=== PATIENT | male | born 1945 | race Caucasian/White ===

== ENCOUNTER 2017-04-27 21:07 | Emergency (ER) | payer OTHER ==
[~2017-04-27] VITALS: Ht 180.3 cm; Wt 127.0 kg
[~2017-04-27 21:07] MED LIST: AMLODIPINE BESYL5 MG PO; AUGMENTIN 875 M1 TAB PO; BACTROBAN OINT22 GM PO; CEFTRIAXON2 GM/50 ML IV; CEPHALEXIN500 M1 PO; CINNAMON500 MG PO; CYCLOBENZAPRINE10 MG PO; D-1000 185 MG-11 TAB PO; FLEXERIL10 MG PO; FLONASE0.05 MG/AC NS; GABAPENTIN800 MG PO; GLUCOSAMINE & C1 TAB PO; GLUCOSE1 EACH PO; HUMULIN N100 U/ML SC; HUMULIN N100 UNIT/1 SQ; HUMULIN R100 U/ML; HUMULIN R100 U/ML SC; HYDROCODONE BIT1 T11 PO; INSULIN HUMA100 U/ML; LAMISIL250 MG PO; LISINOPRIL20 MG PO; LOPRESSOR100 MG; METFORMIN1000 MG PO; METFORMIN500 MG PO; NAPROSYN500 MG PO; NEURONTIN800 MG PO; NOVOLOG 70/30 M10 ML; NOVOLOG 70/30 M10 ML SC; NOVOLOG 701 UNIT/0.0; NOVOLOG10 ML SC; PERCOCET 325 MG1 TA2 PO; TAMIFLU 75MG CA75 MG PO; TOPROL XL100 MG PO; ULTRAM50 MG PO; VICODIN 5/500 505 MG PO; VITAMIN B121000 MC1 PO; [UNRECOGNIZED DRUG - CODE] IM
[2017-04-27 21:49] LABS: BASO # 0.1 10*3/uL (0.0-0.1); BASO % 0.3 % (0.0-1.0); EOS # 0.3 10*3/uL (0.0-0.4); EOS % 2.1 % (1.0-4.0); HEMATOCRIT 40.7 % (42.0-52.0); HEMOGLOBIN 13.5 g/dl (14.0-18.0); LYMPH # 1.5 10*3/uL (1.3-4.4); LYMPH % 10.5 % (27.0-41.0); MEAN CELL VOLUME 80.8 fl (80.0-94.0); MEAN CORPUSCULAR HGB 26.8 pg (27.0-31.0); MEAN CORPUSCULAR HGB CONC 33.2 g/dl (33.0-37.0); MEAN PLATELET VOLUME 9.1 fl (9.6-12.3); MONO % 6.6 % (3.0-9.0); NEUT # 11.7 10*3/uL (2.3-7.9); NEUT % 79.6 % (47.0-73.0); PLATELET COUNT AUTOMATED 281 10*3/uL (130-400); RED BLOOD COUNT 5.04 10*6/uL (4.50-5.90); WHITE BLOOD COUNT 14.6 10*3/uL (4.8-10.8)
[2017-04-27 22:03] LABS: ALBUMIN 3.3 gm/dl (3.1-4.5); ALKALINE PHOSPHATASE 55 U/L (45-117); BUN 18 mg/dl (7-24); CHLORIDE 106 mmol/L (98-107); CREATININE 1.22 mg/dL (0.70-1.30); POTASSIUM 4.3 mmol/L (3.5-5.1); SGOT/AST 21 IU/L (3-35); SGPT/ALT 24 U/L (12-78); SODIUM 139 mmol/L (136-145); TOTAL PROTEIN 7.7 gm/dL (6.4-8.2)
== END 2017-04-28 00:18 | disposition home or self-care (01) ==
LOC: ED 21:07
PROVIDERS: Student in an Organized Health Care Education/Training Program
DX: E16.2 Hypoglycemia, unspecified (principal); I10 Essential (primary) hypertension; E11.40 Type 2 diabetes mellitus with diabetic neuropathy, unspecified; M19.90 Unspecified osteoarthritis, unspecified site; M86.9 Osteomyelitis, unspecified; Z88.6 Allergy status to analgesic agent; Z79.899 Other long term (current) drug therapy

== ENCOUNTER 2017-07-22 15:17 | Inpatient (IN) | payer OTHER ==
[~2017-07-22] VITALS: Ht 180.3 cm; Wt 125.4 kg
--- NOTE | ~2017-07-22 | PR ---
[place], [place] PROGRESS NOTE NAME: LIZETT MOSQUEDA SR UNIT #: [id number] ROOM: 530 DOCTOR: TAM ROBBINS DPM BIRTHDATE: [birth year] DOS: 07/25/2017 SUBJECTIVE: The patient is seen one day status post I and D of abscess and bone biopsy, left foot. States he is feeling better. He denies fever, chills, nausea, vomiting or night sweats. OBJECTIVE: Neurovascular status is unchanged. Plantar first metatarsal head is clean and granular. No purulent drainage or malodor. There is still some mild edema and erythema about the first metatarsal, but no expressible drainage, no signs of remaining abscess at this time. ASSESSMENT: Status post incision and drainage of abscess, bone biopsy, plantar left first metatarsophalangeal joint. PLAN: Wound was evaluated. We would recommend, reapplying the wound VAC at this point per protocol and continue with wound VAC treatment for now. We will await results of the biopsy and cultures. Follow up tomorrow with Dr. Michel. TAM ROBBINS DPM CM:JOSIE [id number] TAM ROBBINS DPM 07/25/17 173 interface
--- NOTE | ~2017-07-22 | PR ---
[place], [place] PROGRESS NOTE NAME: LIZETT MOSQUEDA SR UNIT #: [id number] ROOM: 530 DOCTOR: JESSICA SPICER DPM BIRTHDATE: [birth year] DOS: 07/29/2017 SUBJECTIVE: The patient was seen for followup post I and D, left foot. OBJECTIVE: The wound VAC is intact. There is decreased localized erythema. Results of the bone biopsies are consistent with osteomyelitis. The patient's WBC was 12.2 today. ASSESSMENT: Osteomyelitis, left first MPJ. PLAN: Evaluation and management discussed with the patient that I think he should agree to having the PICC line placed with IV antibiotic treatment for 6 weeks through Infectious Disease. Discussed with the patient that he is risking amputation of the foot or the leg by not following the recommendations. The patient was agreeable to this and we can proceed with PICC line placement. Continue IV antibiotic treatment per Infectious Disease. We will continue wound VAC therapy in-house and once the patient is discharged on an outpatient basis. JESSICA SPICER DPM CM:PNTRANS [id number] JESSICA SPICER DPM 07/29/17 1328 interface
--- NOTE | ~2017-07-22 | PR ---
[place], [place] PROGRESS NOTE NAME: LIZETT MOSQUEDA SR UNIT #: [id number] ROOM: 530 DOCTOR: TAM ROBBINS DPM BIRTHDATE: [birth year] DOS: 07/28/2017 SUBJECTIVE: This patient is seen status post I and D of abscess, bone biopsy, left foot. He is 4 days postop. States he feels well. Denies fever, chills, nausea, vomiting or night sweats. OBJECTIVE: Wound VAC is removed from the left foot. Neurovascular status is unchanged. The left foot wound is clean and granular with no active signs of infection. There is minimal edema and erythema, but no purulent drainage or malodor. Wound does clean and granular and appears to be healing well at this time. No signs of any remaining abscess. ASSESSMENT: Status post incision and drainage of abscess, left foot with bone biopsy, doing well. PLAN: We will change the wound VAC today. I discussed with the patient that I would strongly consider a PICC line if Infectious Disease wants to put one in. This would minimize the risk of complications including further infection, need for further surgery, amputation or sepsis. He states he will think about it, but he at this point, he is not sure he wants the PICC line. Again, I could not stress enough for him to follow the orders of Infectious Disease and if they want a PICC line, I would strongly recommend it. We will continue to follow while in the hospital and follow him up as an outpatient. TAM ROBBINS DPM CM:PNTRANS [id number] TAM ROBBINS DPM 07/28/17 1225 interface
--- NOTE | ~2017-07-22 | O ---
[place], [place] OPERATIVE NOTE NAME: LIZETT MOSQUEDA SR UNIT #: [id number] ROOM: [facility] DOCTOR: JESSICA SPICER DPM BIRTHDATE: [birth year] DOS: 07/24/2017 INTERIM NOTE: The patient was seen for additional incision and drainage of left foot. MRI revealed abscess noted with possible early osteomyelitis of the medial sesamoid. Subsequently, the patient was setup for incision and drainage of the left foot with bone biopsy to rule out definitive diagnosis of osteomyelitis of the left foot. The patient was informed of potential risks and complications including over correction, under correction, potential need for further surgical intervention, amputation, continued IV antibiotic usage, etc. PREOPERATIVE DIAGNOSES: Abscess, first left metatarsophalangeal joint of the left foot with possible osteomyelitis. POSTOPERATIVE DIAGNOSES: Abscess, first left metatarsophalangeal joint of the left foot with possible osteomyelitis, pending pathology. PROCEDURE: Incision and drainage of left foot with bone biopsy of the medial sesamoid of left foot. ESTIMATED BLOOD LOSS: 10 mL. ANESTHESIA: LMAC. PACKING: A 0.5 inch plain packing. INSURANCE RISK ANALYST: None. SURGEON: Jessica Spicer DPM PROCEDURE DETAILS: The patient was brought to the operating room, placed on the operating table in supine position. Anesthesia was administered per Anesthesia Department. Local infiltration of 16 mL of 0.5% Marcaine plain was utilized for local block. The left foot was prepped and draped in usual aseptic manner. There was an abscess noted to plantar first left MPJ. A 15 blade was utilized to perform a 3 cm linear longitudinal incision. Purulent bloody drainage was noted with probing down to the plantar first left MPJ. A [place] elevator was utilized to track the abscess proximally additional 2 cm and distally additional 1 cm. These areas were opened with a 15 blade. Necrotic nonviable tissue was removed. The tissue culture was performed at this time for aerobic, anaerobic, acid fast and fungal cultures. Next, attention was directed to medial sesamoid where a Jamshidi needle was utilized to perform a biopsy of the medial sesamoid. Bone was sent to pathology to rule out osteomyelitis and also for separate cultures. The site was copiously flushed with pulse power irrigation with saline. The area was then packed with 0.5 inch plain packing, wet to dry dressing consisting of 4 x 4s, ABD, Kerlix and Jan bandage. Capillary refill time was normal to all digits of the left foot. The patient tolerated the procedure and anesthesia well and left the OR with vital signs stable and neurovascular status intact. The patient will be returned to the nursing unit. Resume previous orders. Elevate left foot and reinforce dressing as needed. Consult for Infectious Disease was ordered along with consult with Dr. 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 No other occluded arteries. Discussed this with the patient and his preoperatively that he may also need vascular intervention to help the site heal postoperatively. The patient will be seen tomorrow for postoperative followup with Dr. Luis and will return to the nursing unit after clearance by Anesthesia. JESSICA SPICER DPM CM:OPRECORD:OPERATIVE NOTE [phone] JESSICA SPICER DPM 07/30/17 0810 interface
--- NOTE | ~2017-07-22 | PR ---
[place], [place] PROGRESS NOTE NAME: LIZETT MOSQUEDA SR UNIT #: [id number] ROOM: 530 DOCTOR: JESSICA SPICER DPM BIRTHDATE: [birth year] DOS: 07/26/2017 SUBJECTIVE: The patient presents status postop I and D of abscess, bone biopsy day 2. The patient is feeling no pain. Denies fever, chills, nausea or vomiting. OBJECTIVE: The wound VAC is intact. There is decreased localized erythema, decreased edema. Cultures revealed light gram-positive cocci. ASSESSMENT: Post incision and drainage of abscess, possible osteomyelitis. PLAN: Evaluation and management. Continue wound VAC. Continue antibiotics per Infectious Disease. Awaiting for bone biopsy with final culture report from surgery 2 days ago. We will reevaluate the patient tomorrow or Friday. Discussed with Dr. Cortez the patient's case and he will try and help improve the localized circulation to allow for wound healing as the patient will need continued wound VAC therapy once he is on an outpatient basis along with potential delayed primary closure. JESSICA SPICER DPM CM:PNSHANE [phone] JESSICA SPICER DPM 07/26/17 1047 interface
--- NOTE | ~2017-07-22 | CON ---
[place], [place] REPORT OF CONSULTATION NAME: LIZETT MOSQUEDA SR UNIT #: [id number] ROOM: 530 DOCTOR: BETHANY MAHONEY DPM BIRTHDATE: [birth year] DOS: HISTORY OF PRESENT ILLNESS: The patient came into the Emergency Room last night. The Emergency Room contacted me about the patient's abscess of his left sub first metatarsal. He related a history where he had been treated by somebody at the [facility] and subsequently over the last several weeks he developed a callus on his foot. His foot has become more red, hot, swollen and painful, very tender to touch and he was admitted to the ER last night for abscess on his left first metatarsal. The ER contacted me last night and I had ordered vascular studies and MRI which have not been done to this point today. The patient is a 71-year-old male who again has this red hot swollen painful foot for last 3 weeks. It got increasingly worse to the point where it is extremely sore and tender to touch. He denies any chills, fever, nausea, vomiting, constipation, urinary complaints or other symptoms. The patient has had pretty similar infection on his right foot earlier this year, he found to have infection in his bone and he had to get on the antibiotics for 6 weeks at that time. He is a long standing diabetic, I believe since early . He says it takes longer for him to heal. Currently, the patient is on vancomycin, oxycodone. On the radiographs, there are no acute bony deformities identified. There is soft tissue swelling on the plantar aspect, surface aspect of the first metatarsal head, but no radiopaque foreign bodies that were identified based on the read of the radiologist. PAST MEDICAL HISTORY: Consists of chronic kidney disease, cranial nerve #6 palsy, diabetes mellitus, diabetic neuropathy, hypertension, moderate protein calorie malnutrition, morbid obesity, onychomycosis, osteoarthritis, vitamin B12 deficiency, vitamin D deficiency. PAST SURGICAL HISTORY: Consists of tonsillectomy and adenoid, cholecystectomy and hernia repair. SOCIAL HISTORY: The patient does not drink alcohol, does not use illicit drugs and does not use tobacco. FAMILY HISTORY: Father had bone cancer, at age 45 and his mother had COPD, between age 50 and 60. His sister had myocardial infarction and hypertension. ALLERGIES: VICODIN. HOME MEDICATIONS: Amlodipine, vitamin D, cyanocobalamin, cyclobenzaprine, dextrose, gabapentin, glucosamine sulfate, chondroitin sulfate, insulin, lisinopril, metoprolol, terbinafine. PHYSICAL EXAMINATION: LOWER EXTREMITIES: He has pedal pulses at the DP, PT of the left foot. He does have good cap refill time. It appears that he has appreciable good blood supply; however, we do need a noninvasive vascular exam to confirm perfusion to his left lower extremity. NEUROLOGICAL: He has a loss of protective sensation secondary to diabetic [place], [place] REPORT OF CONSULTATION NAME: LIZETT MOSQUEDA SR UNIT #: [id number] ROOM: [facility] DOCTOR: BETHANY MAHONEY DPM BIRTHDATE: [birth year] peripheral neuropathy. DERMATOLOGIC: He has well contained abscess ____ in his left foot, approximately 2 cm in diameter, once this was incised he had a tracking down to the metatarsophalangeal joint approximately 5 mm in diameter. There was creamy purulent drainage upon incision and drainage, consistent with staphylococcus aureus infection on his left. His foot is red, hot, swollen, tender and guarding of his left foot. MUSCULOSKELETAL: He has gastrocnemius equinus. He has limitation of range of motion of his forefoot on left, particularly to first metatarsophalangeal joint secondary to the guarding and red, erythematous, edematous area. ORTHOPEDIC: Possible osteomyelitis as it does probe into the bone and/or septic joint or early stages. I do believe it is early in the process based upon the way this looks. The tissues are relatively pink and healthy in this area, so I do think this is a clot at a reasonable time relative to his foot. IMPRESSION: Abscess to the joint of the first metatarsophalangeal joint, infection, possible osteomyelitis, possible old septic joint. PLAN: 1. Evaluation and management. 2. Bedside I and D was done due to the patient's neuropathy. No need for anesthesia ____ Betadine prep, sterile instrumentation. The incision and drainage was performed on the left foot. Cultures were sent for gram stain, aerobic, anaerobic, fungal and acid fast of his left foot. This culture was taken from the deep area of the joint as well as the subcutaneous tissue. Betadine ____ dry dressing. I ordered a wound VAC in 125 mm of pressure on continuous setting. Awaiting on the arterial vascular supply studies as well as the MRI. I did speak with my partner. Based on the MRI, we may take him into surgery for incision and drainage or based on the MRI results may just see how he does with bedside I and D, the wound VAC and dressings. When I left the room, the patient was comfortable. He was getting Toradol for his pain medication from the nursing staff. This surgical procedure was done at bedside due to the patient being complete neuropathic and with a Betadine prep on it. BETHANY MAHONEY DPM CM:CONSTR:REPORT OF CONSULTATION 1327 07/24/17 0235 interface
[2017-07-22 15:25] VITALS: BP 108/51
[2017-07-22 16:08] LABS: BASO # 0.1 10*3/uL (0.0-0.1); BASO % 0.5 % (0.0-1.0); EOS # 0.2 10*3/uL (0.0-0.4); HEMATOCRIT 42.7 % (42.0-52.0); HEMOGLOBIN 14.5 g/dl (14.0-18.0); LYMPH # 2.3 10*3/uL (1.3-4.4); LYMPH % 14.4 % (27.0-41.0); MEAN CELL VOLUME 80.3 fl (80.0-94.0); MEAN CORPUSCULAR HGB 27.3 pg (27.0-31.0); MEAN PLATELET VOLUME 9.8 fl (9.6-12.3); MONO # 1.1 10*3/uL (0.1-1.0); MONO % 7.3 % (3.0-9.0); NEUT % 76.4 % (47.0-73.0); PLATELET COUNT AUTOMATED 251 10*3/uL (130-400); RED BLOOD COUNT 5.32 10*6/uL (4.50-5.90); RED CELL DISTRI WIDTH 14.5 % (0-14.5); WHITE BLOOD COUNT 15.7 10*3/uL (4.8-10.8)
[2017-07-22 16:32] LABS: ALBUMIN 3.3 gm/dl (3.1-4.5); ALKALINE PHOSPHATASE 64 U/L (45-117); BUN 27 mg/dl (7-24); CHLORIDE 102 mmol/L (98-107); CREATININE 1.31 mg/dL (0.70-1.30); POTASSIUM 4.6 mmol/L (3.5-5.1); SGOT/AST 13 IU/L (3-35); SGPT/ALT 22 U/L (12-78); SODIUM 134 mmol/L (136-145); TOTAL PROTEIN 7.8 gm/dL (6.4-8.2)
[2017-07-22 16:39] LABS: TROPONIN I < 0.015 ng/ml (<0.045)
[2017-07-22 17:43] VITALS: BP 131/77
--- NOTE | 2017-07-22 17:54 | NUR ---
THE PATIENT WAS GIVEN HIS MEAL
--- NOTE | 2017-07-22 18:24 | NUR ---
IN ADDITION TO THE WOUND ON THE HEEL, THE PT HAS SCABBED AREAS TO THE LEFT KNEE AND LEFT FOREARM.
--- NOTE | 2017-07-22 19:15 | NUR ---
REPORT CALLED TO LIS
--- NOTE | 2017-07-22 19:38 | NUR ---
UPON TAKING THE PATIENT UPSTAIRS I NOTED A TAM ON HIS ABDOMEN. NO DRAINAGE NOTED. SCABBED OVER. I DID TELL THE RECIEVING NURSE LIS. ABOUT THE SITE
[2017-07-22 20:00] VITALS: BP 141/79
--- NOTE | 2017-07-22 20:20 | NUR ---
Time: 1929 A 71 year old MALE admitted to 5E under services of MYRA NICK DO. Pt. arrived via bed from ER. Chief complaint: CELLULITIS AND ABCESS OF LEFT FOOT. LIS SILVA
--- NOTE | 2017-07-22 20:23 | NUR ---
PATIENT AWAKE AND ALERT. WITH PATIENT, AMBULATORY. LEFT FOOT WARM, RED WITH THICKENED AREA UNDER LEFT GREAT TOE. PATIENT COMPLAINS OF PAIN FROM TIP OF TOES TO APPROX. 3 INCHES BELOW THE LEFT KNEE. LUNGS CLEAR.
--- NOTE | 2017-07-22 21:00 | NUR ---
DR HINSON WAS NOTIFIED OF CONSULT FOR ABCESS OF LEFT FOOT. NEW ORDER RECEIVED FOR CTA OF LEFT LOWER EXTREMITY.
[2017-07-23] VITALS: BP 150/70
--- NOTE | 2017-07-23 04:25 | NUR ---
24 HR chart check completed.
[2017-07-23 06:48] LABS: BASO # 0.1 10*3/uL (0.0-0.1); BASO % 0.4 % (0.0-1.0); EOS # 0.4 10*3/uL (0.0-0.4); EOS % 3.5 % (1.0-4.0); HEMATOCRIT 38.2 % (42.0-52.0); HEMOGLOBIN 12.8 g/dl (14.0-18.0); LYMPH # 2.5 10*3/uL (1.3-4.4); LYMPH % 21.1 % (27.0-41.0); MEAN CELL VOLUME 79.7 fl (80.0-94.0); MEAN CORPUSCULAR HGB 26.7 pg (27.0-31.0); MEAN CORPUSCULAR HGB CONC 33.5 g/dl (33.0-37.0); MEAN PLATELET VOLUME 10.3 fl (9.6-12.3); MONO # 1.1 10*3/uL (0.1-1.0); NEUT # 7.9 10*3/uL (2.3-7.9); NEUT % 65.6 % (47.0-73.0); PLATELET COUNT AUTOMATED 223 10*3/uL (130-400); RED BLOOD COUNT 4.79 10*6/uL (4.50-5.90); RED CELL DISTRI WIDTH 14.3 % (0-14.5)
[2017-07-23 07:29] LABS: ACT PARTIAL THROMBO TIME 31.7 SECONDS (20.8-31.5)
[2017-07-23 07:32] LABS: CHLORIDE 107 mmol/L (98-107); SODIUM 137 mmol/L (136-145)
[2017-07-23 07:44] LABS: ALBUMIN 2.7 gm/dl (3.1-4.5); ALKALINE PHOSPHATASE 52 U/L (45-117); BUN 19 mg/dl (7-24); CREATININE 0.97 mg/dL (0.70-1.30); PHOSPHOROUS 2.2 mg/dL (2.5-4.9); SGOT/AST 10 IU/L (3-35); SGPT/ALT 17 U/L (12-78); TOTAL PROTEIN 6.5 gm/dL (6.4-8.2)
[2017-07-23 08:00] VITALS: BP 149/94
--- NOTE | 2017-07-23 08:30 | NUR ---
Hand Striper in to talk to patient. Patient states lives at home with his . There are basement steps in the home. Physician: Dr. Tyler Winslow [facility]acy: [facility], maintenance meds through the [facility] Home health services: none Patient's level of ADLs: MINIMAL ASSIST Patient has working utilities: yes DME: cane Follow-up physician's appointment after d/c: will be made by hospitalist nurse director upon discharge Does patient want to access PORTAL?: no Discharge plan discussed with patient. He lives at home with his . There are basement steps in the home which he doesn't go down. He ambulates with a cane and is independent in his ADLs. When medically stable he will be discharged to home. ALEXANDER LAMAS
[2017-07-23 09:02] VITALS: BP 148/78
--- NOTE | 2017-07-23 11:02 | NUR ---
LIZETT MOSQUEDA SR [id number] Please refer to the physician's history and physical for past medical history, comorbid conditions, and allergies. Diagnosis: CELLULITIS AND ABSCESS OF FOOT Omar Score: , WOUND DESCRIPTIONS: Location of the wound: left metatarsal head Type of wound: abscess Thickness: Full Size: 4.2cm x 3cm x <0.1cm Tunneling: none Undermining: none Sinus Tract: none Presence of Exudate:none Amount: None Color: Brown, red, yellow Odor: None Periwound Skin Appearance: Erythema Wound edges: closed Pain (associated with wound): patient states tender to touch How does patient state this happened? patient states this started about 3 weeks ago but the reddness started Friday of this week. Patient states he follows up with podiatry at the [facility] but could not recall when he went last. Capillary refill <3 seconds. Pulse present. Surface the patient is resting on: Position Pro SKIN PREVENTION RECOMMENDATION: 1. Pressure redistribution support surface as appropriate 2. Elevate heels 3. Remove boots/TEDS every shift and reapply 4. Head of bed 30 degrees as tolerated 5. Assess nutrition and hydration 6. Manage moisture 7. Avoid the use of containment devices while in bed 8. Use absorptive products on surfaces limit layers of linens on bed 9. Turn and reposition every 1-2 hours in bed and every 1 hour in chair as tolerated 10. Weight shifts every 15 minutes while up in chair 11. Offloading with pillows or device to keep heels elevated off bed 12. Monitor skin at least every shift 13. Inspect under medical devices twice a day WOUND TREATMENT RECOMMENDATIONS: Await orders from Podiatry
--- NOTE | 2017-07-23 11:36 | NUR ---
PT OFF FLOOR FOR MRI/CTA.
--- NOTE | 2017-07-23 12:19 | NUR ---
PT RETURNED TO FLOOR FROM MRI/CTA.
--- NOTE | 2017-07-23 13:01 | NUR ---
IN TO SEE PT AT THIS TIME. DOCTOR PERFORMED DEBRIDEMENT AT BEDSIDE AND TOOK CULTURES OF ABSCESS. CULTURES WERE SENT TO LAB PER PROTOCOL. GAVE ORDERS TO THIS NURSE IMMEDIATELY FOLLOWING DEBRIDEMENT FOR WOUND VAC. PT TOLERATED DEBRIDEMENT WELL. WILL CONTINUE TO MONITOR.
--- NOTE | 2017-07-23 13:06 | NUR ---
PT REQUESTED MEDICATION FOR PAIN. PAIN RATED AT 8 OUT OF 10 AND LOCATED AT THE LEFT FOOT ABSCESS. PRN TORADOL GIVEN. WILL MONITOR FOR EFFECTIVENESS.
--- NOTE | 2017-07-23 13:36 | NUR ---
PT OFF FLOOR FOR MRI/UA/CTA.
--- NOTE | 2017-07-23 13:49 | NUR ---
PER PT, PRN TORADOL WAS EFFECTIVE FOR PAIN. PAIN RATED AT 3 OUT OF 10. WILL CONTINUE TO MONITOR.
--- NOTE | 2017-07-23 15:43 | NUR ---
PT RETURNED TO ROOM/FLOOR FROM MRI/CTA/US.
[2017-07-23 16:00] VITALS: BP 157/80
--- NOTE | 2017-07-23 18:00 | NUR ---
DEBRIDED ABSCESS WAS CLEANED WITH NORMAL SALINE AND DRIED WITH GAUZE. WOUND VAC WAS PLACED PER ORDERS. PT TOLERATED WELL. WILL CONTINUE TO MONITOR.
[2017-07-23 20:00] VITALS: BP 155/79
--- NOTE | 2017-07-23 20:00 | NUR ---
LAB RESULTS AND ORDERS REVIEWED. PT RESTING IN BED WITH SPOUSE AT BEDSIDE. NO ACUTE DISTRESS NOTED AT THIS TIME. RESPS EASY AND REGULAR. PLAN OF CARE REVIEWED. NO QUESTIONS VOICED AT THIS TIME.
[2017-07-23 22:05] VITALS: BP 181/80
[2017-07-24] VITALS (7 sets, daily range): BP systolic 84–176; BP diastolic 48–90
--- NOTE | 2017-07-24 03:00 | NUR ---
PT RESTING IN BED WITH EYES CLOSED. NO S AND S OF ACUTE DISTRESS NOTED AT THIS TIME. RESPS EASY AND REGULAR. CALL LIGHT IN REACH.
[2017-07-24 06:46] LABS: BASO # 0.1 10*3/uL (0.0-0.1); BASO % 0.5 % (0.0-1.0); EOS # 0.4 10*3/uL (0.0-0.4); EOS % 3.9 % (1.0-4.0); HEMATOCRIT 36.6 % (42.0-52.0); HEMOGLOBIN 12.5 g/dl (14.0-18.0); LYMPH # 2.2 10*3/uL (1.3-4.4); LYMPH % 19.7 % (27.0-41.0); MEAN CELL VOLUME 79.7 fl (80.0-94.0); MEAN CORPUSCULAR HGB 27.2 pg (27.0-31.0); MEAN CORPUSCULAR HGB CONC 34.2 g/dl (33.0-37.0); MEAN PLATELET VOLUME 9.8 fl (9.6-12.3); MONO # 1.1 10*3/uL (0.1-1.0); MONO % 9.6 % (3.0-9.0); NEUT # 7.2 10*3/uL (2.3-7.9); NEUT % 65.8 % (47.0-73.0); PLATELET COUNT AUTOMATED 234 10*3/uL (130-400); RED BLOOD COUNT 4.59 10*6/uL (4.50-5.90); RED CELL DISTRI WIDTH 14.1 % (0-14.5); WHITE BLOOD COUNT 10.9 10*3/uL (4.8-10.8)
[2017-07-24 07:20] LABS: BUN 11 mg/dl (7-24); CHLORIDE 106 mmol/L (98-107); SODIUM 138 mmol/L (136-145)
[2017-07-24 07:22] LABS: CREATININE 0.95 mg/dL (0.70-1.30); PHOSPHOROUS 2.5 mg/dL (2.5-4.9)
--- NOTE | 2017-07-24 11:46 | NUR ---
PT OFF FLOOR FOR SURGERY. WOUND VAC REMOVED. PT TOLERATED WELL. WET TO DRY DRESSING PLACED AND WRAPPED WITH KERLEX PER ORDERS.
--- NOTE | 2017-07-24 13:04 | NUR ---
PT RETURNED TO FLOOR/ROOM FROM SURGERY.
--- NOTE | 2017-07-24 13:15 | NUR ---
DR. Osuna IN TOO SEE PT FOR 'S SERVICE.
[2017-07-24] MEDS ORDERED: LISINOPRIL5 MG PO (14:14)
[2017-07-24] MEDS ORDERED: LANTUS SOL100 UNIT/1 SQ (14:19)
[2017-07-24] MEDS ORDERED: NOVOLOG FL100 UNIT/1 SQ (14:21)
--- NOTE | 2017-07-24 14:24 | NUR ---
PT IN BED, EYES CLOSED, RESTING. AT BEDSIDE. FLUIDS GOING. PT IN NO OBVIOUS DISTRESS AT THIS TIME. WILL CONTINUE TO MONITOR.
--- NOTE | 2017-07-24 15:09 | NUR ---
Meterman in to see patient. No new needs or request at this time. When medically stable he will be discharged home.
--- NOTE | 2017-07-24 19:16 | NUR ---
PTSW IV WAS LEAKING AFTER STARTNG VANCOMYCIN. DRESSING REMOVED AND IV CATHETER FOUND TO BE REMOVED FROM VEIN. PT UNSURE HOW IT HAPPENED. NEW IV STARTED AFTER 3 ATTEMPTS IN PTs LEFT FOREARM. NS AND VANC FLOWING. NO ISSUES PER PT.
--- NOTE | 2017-07-24 22:51 | NUR ---
PATIENT LYING IN BED, DRESSING INTACT ON LEFT FOOT. PATIENT DENIES PAIN IN LEFT LEG. PATIENT STATES HAS SLIGHT HEADACHE THAT IS SLOWLY DECREASING. IV INTACT TO LFA WITH FLUIDS RUNNING. LUNGS CLEAR AND PATIENT STATES THAT HE HAD BM X2 TODAY.
[2017-07-25] VITALS: BP 157/101
[2017-07-25 07:34] LABS: BASO # 0.1 10*3/uL (0.0-0.1); BASO % 0.6 % (0.0-1.0); EOS # 0.5 10*3/uL (0.0-0.4); EOS % 4.4 % (1.0-4.0); HEMATOCRIT 36.7 % (42.0-52.0); HEMOGLOBIN 12.3 g/dl (14.0-18.0); LYMPH # 2.3 10*3/uL (1.3-4.4); LYMPH % 21.4 % (27.0-41.0); MEAN CELL VOLUME 78.6 fl (80.0-94.0); MEAN CORPUSCULAR HGB 26.3 pg (27.0-31.0); MEAN CORPUSCULAR HGB CONC 33.5 g/dl (33.0-37.0); MEAN PLATELET VOLUME 10.2 fl (9.6-12.3); MONO # 1.1 10*3/uL (0.1-1.0); MONO % 9.8 % (3.0-9.0); NEUT # 6.9 10*3/uL (2.3-7.9); NEUT % 63.5 % (47.0-73.0); PLATELET COUNT AUTOMATED 249 10*3/uL (130-400); RED BLOOD COUNT 4.67 10*6/uL (4.50-5.90); RED CELL DISTRI WIDTH 13.9 % (0-14.5); WHITE BLOOD COUNT 10.9 10*3/uL (4.8-10.8)
[2017-07-25 07:52] LABS: BUN 12 mg/dl (7-24); CHLORIDE 105 mmol/L (98-107); CREATININE 0.93 mg/dL (0.70-1.30); PHOSPHOROUS 2.4 mg/dL (2.5-4.9); POTASSIUM 3.7 mmol/L (3.5-5.1); SODIUM 138 mmol/L (136-145)
[2017-07-25 08:00] VITALS: BP 155/91
[2017-07-25 12:00] VITALS: BP 142/65
--- NOTE | 2017-07-25 12:47 | NUR ---
Dean Of Boys in to see patient. No new needs or request at this time. When medically stable he will be discharged home.
[2017-07-25 16:00] VITALS: BP 160/73
--- NOTE | 2017-07-25 19:57 | NUR ---
ASSUMED CARE OF PT. PT ASSESSED AND PLAN OF CARE IMPLIMENTED
[2017-07-25 20:00] VITALS: BP 137/77
[2017-07-26] VITALS: BP 133/57
--- NOTE | 2017-07-26 02:00 | NUR ---
PT RESTING QUIETLY, RESPIRATIONS EASY. CALL LIGHT WITHIN REACH.
[2017-07-26 07:37] LABS: PHOSPHOROUS 3.7 mg/dL (2.5-4.9)
[2017-07-26 08:00] VITALS: BP 151/75
[2017-07-26 12:00] VITALS: BP 169/82
[2017-07-26 16:00] VITALS: BP 172/86
[2017-07-26 20:00] VITALS: BP 162/78
[2017-07-27] VITALS: BP 164/89
--- NOTE | 2017-07-27 06:29 | NUR ---
PER DR. LOPEZ SAFE TO GIVE LEVEMIR THIS MORNING.
--- NOTE | 2017-07-27 06:43 | NUR ---
0730 DOSE OF INSULIN WAS NOT GIVEN DUE TO CRITICAL GLUCOSE LEVELS WITH IN THE LAST 24 HOUR PERIOD.
[2017-07-27 07:25] LABS: BASO # 0.1 10*3/uL (0.0-0.1); BASO % 0.7 % (0.0-1.0); EOS # 0.7 10*3/uL (0.0-0.4); EOS % 7.1 % (1.0-4.0); HEMATOCRIT 36.7 % (42.0-52.0); HEMOGLOBIN 12.3 g/dl (14.0-18.0); LYMPH # 2.6 10*3/uL (1.3-4.4); LYMPH % 25.1 % (27.0-41.0); MEAN CELL VOLUME 79.3 fl (80.0-94.0); MEAN CORPUSCULAR HGB 26.6 pg (27.0-31.0); MEAN CORPUSCULAR HGB CONC 33.5 g/dl (33.0-37.0); MONO # 0.9 10*3/uL (0.1-1.0); MONO % 8.3 % (3.0-9.0); NEUT # 6.1 10*3/uL (2.3-7.9); NEUT % 58.4 % (47.0-73.0); PLATELET COUNT AUTOMATED 287 10*3/uL (130-400); RED BLOOD COUNT 4.63 10*6/uL (4.50-5.90); WHITE BLOOD COUNT 10.5 10*3/uL (4.8-10.8)
[2017-07-27 07:45] LABS: BUN 11 mg/dl (7-24); CHLORIDE 103 mmol/L (98-107); CREATININE 0.82 mg/dL (0.70-1.30); PHOSPHOROUS 2.9 mg/dL (2.5-4.9); POTASSIUM 3.5 mmol/L (3.5-5.1); SODIUM 138 mmol/L (136-145)
[2017-07-27 08:00] VITALS: BP 162/76
[2017-07-27 12:00] VITALS: BP 158/98
[2017-07-27 16:00] VITALS: BP 155/64
[2017-07-27 20:00] VITALS: BP 159/77
[2017-07-28] VITALS: BP 167/85
--- NOTE | 2017-07-28 05:15 | NUR ---
Shift chart check completed.
[2017-07-28 05:42] LABS: BUN 12 mg/dl (7-24); CHLORIDE 103 mmol/L (98-107); CREATININE 0.95 mg/dL (0.70-1.30); POTASSIUM 4.2 mmol/L (3.5-5.1); SODIUM 140 mmol/L (136-145)
[2017-07-28 07:24] LABS: BASO # 0.1 10*3/uL (0.0-0.1); BASO % 0.6 % (0.0-1.0); EOS # 0.7 10*3/uL (0.0-0.4); EOS % 6.9 % (1.0-4.0); HEMATOCRIT 36.7 % (42.0-52.0); HEMOGLOBIN 12.2 g/dl (14.0-18.0); LYMPH # 2.8 10*3/uL (1.3-4.4); LYMPH % 26.7 % (27.0-41.0); MEAN CELL VOLUME 78.6 fl (80.0-94.0); MEAN CORPUSCULAR HGB 26.1 pg (27.0-31.0); MEAN CORPUSCULAR HGB CONC 33.2 g/dl (33.0-37.0); MEAN PLATELET VOLUME 9.8 fl (9.6-12.3); MONO # 0.9 10*3/uL (0.1-1.0); MONO % 8.6 % (3.0-9.0); NEUT % 56.7 % (47.0-73.0); PLATELET COUNT AUTOMATED 296 10*3/uL (130-400); RED BLOOD COUNT 4.67 10*6/uL (4.50-5.90); RED CELL DISTRI WIDTH 13.8 % (0-14.5); WHITE BLOOD COUNT 10.6 10*3/uL (4.8-10.8)
[2017-07-28 08:00] VITALS: BP 154/83
--- NOTE | 2017-07-28 08:30 | NUR ---
Concrete Carpenter in to see patient. No new needs or request at this time. When medically stable he will be discharged home.
--- NOTE | 2017-07-28 12:14 | NUR ---
DR. ROBBINS HAS ROUNDED AND REMOVED WOUND VAC FROM L FOOT. NEW WOUND VAC TO BE PLACED.
--- NOTE | 2017-07-28 13:00 | NUR ---
patient has voiced to multiple doctors today that he does not want a picc line.
--- NOTE | 2017-07-28 14:30 | NUR ---
new wound vac dressing in place and photo taken.
--- NOTE | 2017-07-28 15:00 | NUR ---
Discussed short term SNF with patient and he adamantly refuses. He has had visiting nurses before but he doesn't remember what company it was with. He said he will talk to his when she comes in. Will continue to follow.
[2017-07-28] MEDS ORDERED: ZYVOX600 MG PO (15:33)
--- NOTE | 2017-07-28 15:48 | NUR ---
LIZETT MOSQUEDA SR [id number] Please refer to the physician's history and physical for past medical history, comorbid conditions, and allergies. Diagnosis: CELLULITIS AND ABSCESS OF FOOT Omar Score: 20,LOW OR NO RISK WOUND DESCRIPTIONS: Location of the wound: left plantar aspect of foot Type of wound: surgical Thickness: Full Size: 6.3cm x 0.9cm x 0.6cm Tunneling: none Undermining: none Sinus Tract: none Presence of Exudate: Serosanguineous Amount: Light Color: Red, yellow Odor: None Periwound Skin Appearance: Normal Wound edges: approximated Pain (associated with wound): none at time of assessment How does patient state this happened? he stated it started as an abscess and got worse [facility]. Wound vac dressing was changed today per Dr. Luis. 125mmHG continous. This nurse explained to his the importance of contining the antibiotic therapy via iv once patient is discharge. He stated he will speak to his to see if they will be able to do it at home since he doesn't want to go to a facility. I was in the room while was in the room and he explained the importance of his therapy after discharged here from the hospital as well. Surface the patient is resting on: Position Pro SKIN PREVENTION RECOMMENDATION: 1. Pressure redistribution support surface as appropriate 2. Elevate heels 3. Remove boots/TEDS every shift and reapply 4. Head of bed 30 degrees as tolerated 5. Assess nutrition and hydration 6. Manage moisture 7. Avoid the use of containment devices while in bed 8. Use absorptive products on surfaces limit layers of linens on bed 9. Turn and reposition every 1-2 hours in bed and every 1 hour in chair as tolerated 10. Weight shifts every 15 minutes while up in chair 11. Offloading with pillows or device to keep heels elevated off bed 12. Monitor skin at least every shift 13. Inspect under medical devices twice a day WOUND TREATMENT RECOMMENDATIONS: Continue dressings per podiatry.
[2017-07-28 16:00] VITALS: BP 158/87
[2017-07-28 20:00] VITALS: BP 143/75
--- NOTE | 2017-07-28 20:00 | NUR ---
SITTING AT BEDSIDE, NO DISTRESS NOTED. RESPIRATIONS EASY. LUNGS DIMINISHED, CLEAR. PULSE OX 95% RA. WOUND VAC IN PLACE TO LEFT FOOT, PEDAL EDEMA NOTED. CALL LIGHT WITHIN REACH. NO VOICED COMPLAINTS
--- NOTE | 2017-07-28 23:30 | NUR ---
SLEEPING, NO DISTRESS NOTED. RESPIRATIONS EASY. VSS. CALL LIGHT WITHIN REACH
[2017-07-29] VITALS: BP 134/72
--- NOTE | 2017-07-29 03:00 | NUR ---
CONTINUES TO SLEEP WITH NO DISTRESS NOTED. RESPIRATIONS EASY. CALL LIGHT WITHIN REACH
--- NOTE | 2017-07-29 06:30 | NUR ---
WHILE ADMINISTERING INSULIN TO PATIENT'S ABD, WOUND NOTED. WOUND NOTED TO OLD SURGICAL SCAR. PATIENT STATES WOUND OPENS EVERY YEAR AND WOUND HAS BEEN OPEN SINCE JANUARY
[2017-07-29 06:46] LABS: BASO # 0.1 10*3/uL (0.0-0.1); BASO % 0.6 % (0.0-1.0); EOS # 0.6 10*3/uL (0.0-0.4); HEMATOCRIT 36.8 % (42.0-52.0); HEMOGLOBIN 12.4 g/dl (14.0-18.0); LYMPH # 3.3 10*3/uL (1.3-4.4); LYMPH % 27.2 % (27.0-41.0); MEAN CELL VOLUME 78.3 fl (80.0-94.0); MEAN CORPUSCULAR HGB 26.4 pg (27.0-31.0); MEAN CORPUSCULAR HGB CONC 33.7 g/dl (33.0-37.0); MEAN PLATELET VOLUME 9.3 fl (9.6-12.3); MONO % 8.1 % (3.0-9.0); NEUT # 7.1 10*3/uL (2.3-7.9); NEUT % 58.4 % (47.0-73.0); PLATELET COUNT AUTOMATED 296 10*3/uL (130-400); RED CELL DISTRI WIDTH 13.6 % (0-14.5); WHITE BLOOD COUNT 12.2 10*3/uL (4.8-10.8)
[2017-07-29 06:59] LABS: BUN 12 mg/dl (7-24); CHLORIDE 103 mmol/L (98-107); CREATININE 0.87 mg/dL (0.70-1.30); PHOSPHOROUS 2.7 mg/dL (2.5-4.9); POTASSIUM 3.8 mmol/L (3.5-5.1); SODIUM 138 mmol/L (136-145)
--- NOTE | 2017-07-29 07:15 | NUR ---
VANC TROUGH 22.8. TROUGH DRAWN AFTER VANC HAD BEEN RUNNING FOR 20-25 MINS. LAB AND PHARMACY NOTIFIED. PHARMACY TO ORDER VANC REDRAW THIS PM
[2017-07-29 08:00] VITALS: BP 144/57
--- NOTE | 2017-07-29 08:30 | NUR ---
Egg Grader in to see patient. Discussed discharge needs and patient previously used [facility] for home health after surgery on his right foot. He would like to use [facility] this time for the wound vac. When medically stable he will be discharged to home.
--- NOTE | 2017-07-29 10:01 | NUR ---
MEDICATED WITH PRN PO MOTRIN FOR C/O HEADACHE.
--- NOTE | 2017-07-29 10:54 | NUR ---
LIZETT MOSQUEDA SR [id number] Please refer to the physician's history and physical for past medical history, comorbid conditions, and allergies. Diagnosis: CELLULITIS AND ABSCESS OF FOOT Omar Score: 20,LOW OR NO RISK WOUND DESCRIPTIONS: Location of the wound: MID ABDOMIN Thickness: Partial Size: 0.6CM X 0.6CM X 0.6CM Tunneling: NONE Undermining: NONE Sinus Tract: NONE Presence of Exudate: NONE Amount: None Color: Brown, RED Odor: None Periwound Skin Appearance: Scar Wound edges: APPROXIMATED Pain (associated with wound): DENIED AT TIME OF ASSESSMENT How does patient state this happened? PATIENT STATES HE HAD HIS GALLBLADDER REMOVED IN 1982 AND THE SCAR WILL OPEN FOR A COUPLE DAYS TO A COUPLE WEEKS THEN HEAL. PATIENT STATES THIS HAS BEEN HAPPENING "FOR YEARS" AND HAS TOLD HIS PCP EVERYTIME IT OPENS. Surface the patient is resting on: Position Pro SKIN PREVENTION RECOMMENDATION: 1. Pressure redistribution support surface as appropriate 2. Elevate heels 3. Remove boots/TEDS every shift and reapply 4. Head of bed 30 degrees as tolerated 5. Assess nutrition and hydration 6. Manage moisture 7. Avoid the use of containment devices while in bed 8. Use absorptive products on surfaces limit layers of linens on bed 9. Turn and reposition every 1-2 hours in bed and every 1 hour in chair as tolerated 10. Weight shifts every 15 minutes while up in chair 11. Offloading with pillows or device to keep heels elevated off bed 12. Monitor skin at least every shift 13. Inspect under medical devices twice a day WOUND TREATMENT RECOMMENDATIONS: CLEANSE ABD WOUND WITH NS APPLY SUREPREP TO SURROUNDING SKIN APPLY THERAHONEY AND COVER WITH OPTIFOAM GENTLE.
[2017-07-29 12:00] VITALS: BP 167/78
--- NOTE | 2017-07-29 12:15 | NUR ---
DR. SPICER WAS IN TO SEE PATIENT RE: PLAN OF CARE, PER DR. SPICER, PATIENT IS AGREEABLE TO PICC LINE PLACEMENT. PHONED DR. RIDER'S OFFICE TO SEND OUT PAGE RE: THIS INFORMATION.
--- NOTE | 2017-07-29 12:35 | NUR ---
DR. RIDER NOTIFIED THAT PATIENT IS AGREEABLE TO PICC LINE PLACEMENT, AND HE WOULD LIKE [facility] UPON DISCHARGE, PER CASE MANAGEMENT NOTES.
--- NOTE | 2017-07-29 12:37 | NUR ---
PRN PO MOTRIN EFFECTIVE FOR HEADACHE.
[2017-07-29 16:00] VITALS: BP 137/86; BP 160/90
[2017-07-29 20:00] VITALS: BP 153/74
--- NOTE | 2017-07-29 20:00 | NUR ---
PATIENT AWAKE IN BED. WOUND VAC INTACT TO LEFT FOOT. ASSESSMENT COMPLETE, LUNG SOUNDS CLEAR, ACTIVE BOWEL SOUNDS X4. PATIENT DENIES ANY NEEDS AT THIS TIME, WILL CONTINUE TO MONITOR.
[2017-07-30] VITALS: BP 149/86
[2017-07-30 06:31] LABS: BUN 14 mg/dl (7-24); CHLORIDE 102 mmol/L (98-107); CREATININE 0.96 mg/dL (0.70-1.30); POTASSIUM 3.9 mmol/L (3.5-5.1); SODIUM 139 mmol/L (136-145)
[2017-07-30 06:33] LABS: BASO # 0.1 10*3/uL (0.0-0.1); BASO % 0.5 % (0.0-1.0); EOS # 0.6 10*3/uL (0.0-0.4); HEMATOCRIT 36.9 % (42.0-52.0); HEMOGLOBIN 12.3 g/dl (14.0-18.0); LYMPH % 26.1 % (27.0-41.0); MEAN CELL VOLUME 79.2 fl (80.0-94.0); MEAN CORPUSCULAR HGB 26.4 pg (27.0-31.0); MEAN CORPUSCULAR HGB CONC 33.3 g/dl (33.0-37.0); MEAN PLATELET VOLUME 9.7 fl (9.6-12.3); MONO # 0.9 10*3/uL (0.1-1.0); MONO % 7.9 % (3.0-9.0); NEUT % 59.6 % (47.0-73.0); PLATELET COUNT AUTOMATED 306 10*3/uL (130-400); RED BLOOD COUNT 4.66 10*6/uL (4.50-5.90); RED CELL DISTRI WIDTH 13.8 % (0-14.5); WHITE BLOOD COUNT 11.7 10*3/uL (4.8-10.8)
[2017-07-30 07:49] VITALS: BP 132/70
--- NOTE | 2017-07-30 08:30 | NUR ---
Lecturer In Marketing in to see patient. No new needs or requests at this time. When medically stable he will be discharged to home with [facility].
--- NOTE | 2017-07-30 10:42 | NUR ---
Spoke to Bill at Dr. Michel's office regarding wound vac. Terence is speaking to [facility] at this time.
[2017-07-30 12:00] VITALS: BP 162/75
--- NOTE | 2017-07-30 15:44 | NUR ---
[facility] WOUND VAC FULL FASHIONED GARMENT KNITTER CALLED, STATES A WOUND VAC WILL BE DELIVERED TO PATIENT'S ROOM IN ABOUT AN HOUR. DR. SPICER'S OFFICE STAFF NOTIFIED OF THIS.
[2017-07-30 16:00] VITALS: BP 146/73
--- NOTE | 2017-07-30 17:19 | NUR ---
DR. SPICER NOTIFIED THAT [facility] WOUND [facility]AC HAS ARRIVED, HE IS CALLING DR. RIDER TO DISCUSS SELECTION OF ANTIBIOTICS/ROUTES OF ADMINISTRATION FOR DISCHARGE.
--- NOTE | 2017-07-30 17:34 | NUR ---
PER DR. SPICER, HE AND DR. RIDER ARE IN AGREEMENT WITH THE [facility], PRESCRIPTION IS ON THE CHART FOR DISCHARGE. PER DR. SPICER, WOUND VAC MAY BE APPLIED TONIGHT, OR TOMORROW, IF THERE ARE NO PLANS TO DISCHARGE THE PATIENT TONIGHT. DR. EDOUARD NOTIFIED OF THIS INFORMATION, PER DR. EDOUARD, PATIENT PROBABLY CAN BE DISCHARGED TONIGHT. PROCEEDING WITH WOUND PHOTOGRAPHY AND APPLICATION OF [facility] WOUND VAC AT THIS TIME.
[2017-07-30] MEDS ORDERED: ZYVOX600 MG PO (17:57)
[2017-07-30] MEDS ORDERED: LISINOPRIL20 MG PO (17:57)
--- NOTE | 2017-07-30 18:00 | NUR ---
[facility] WOUND VAC APPLIED TO LEFT GREAT TOE/FOOT WOUND. DISCHARGE ORDER ENTERED, PREPARING PATIENT FOR DISCHARGE HOME WITH [facility] FOR WOUND VAC MAINTENANCE.
--- NOTE | 2017-07-30 19:30 | NUR ---
ASSUMED CARE OF PATIENT. PATIENT RESTING IN BED WITH LEFT LEG ELEVATED AND WOUND VAC APPLIED. PATIENT DENIES ANY PAIN OR DISCOMFORT ON ASSESSMENT. PATIENT IS A&OX3. NO FURTHER REQUESTS AT THIS TIME, CALL LIGHT WITHIN REACH. SEE ASSESSMENT.
[2017-07-30 20:00] VITALS: BP 180/78
--- NOTE | 2017-07-30 20:45 | NUR ---
DR. SHAFER MADE AWARE THAT PATIENT WON'T HAVE A RIDE FOR DISCHARGE UNTIL THE MORNING AND THAT PATIENT NEEDS PRESRIPTIONS FILLED AT OUR PHARMACY TO ENSURE MEDICATION COMPLIANCE.
[2017-07-31] VITALS: BP 155/67
--- NOTE | 2017-07-31 06:35 | NUR ---
PATIENT RESTING IN BED AND VERBALIZES BEING ABLE TO SLEEP T/O NIGHT W/O INTERRUPTION. PATIENT HAS WOUND VAC APPLIED TO LEFT FOOT. PATIENT DENIES ANY PAIN OR DISCOMFORT UPON ASSESSMENT. NO FURTHER REQUEST AT THIS TIME. CALL LIGHT WITHIN REACH. SEE ASSESSMENT.
[2017-07-31 07:04] LABS: BASO # 0.1 10*3/uL (0.0-0.1); BASO % 0.6 % (0.0-1.0); EOS # 0.6 10*3/uL (0.0-0.4); EOS % 5.5 % (1.0-4.0); HEMATOCRIT 38.2 % (42.0-52.0); HEMOGLOBIN 12.8 g/dl (14.0-18.0); LYMPH # 3.3 10*3/uL (1.3-4.4); LYMPH % 29.2 % (27.0-41.0); MEAN CELL VOLUME 80.6 fl (80.0-94.0); MEAN CORPUSCULAR HGB CONC 33.5 g/dl (33.0-37.0); MEAN PLATELET VOLUME 9.9 fl (9.6-12.3); MONO # 0.8 10*3/uL (0.1-1.0); MONO % 7.5 % (3.0-9.0); NEUT # 6.3 10*3/uL (2.3-7.9); NEUT % 56.5 % (47.0-73.0); PLATELET COUNT AUTOMATED 333 10*3/uL (130-400); RED BLOOD COUNT 4.74 10*6/uL (4.50-5.90); RED CELL DISTRI WIDTH 13.8 % (0-14.5); WHITE BLOOD COUNT 11.2 10*3/uL (4.8-10.8)
[2017-07-31 07:33] LABS: BUN 16 mg/dl (7-24); CHLORIDE 103 mmol/L (98-107); CREATININE 0.94 mg/dL (0.70-1.30); PHOSPHOROUS 2.8 mg/dL (2.5-4.9); POTASSIUM 3.8 mmol/L (3.5-5.1); SODIUM 139 mmol/L (136-145)
[2017-07-31 08:00] VITALS: BP 139/80
--- NOTE | 2017-07-31 08:30 | NUR ---
Rn Visiting in to see patient. He asked where to get his antibiotic from. Instructed he would need to stop at the hospital pharmacy on the 3rd floor when he is discharged to pay for and bulk picker his medications. He verbalized an understanding. When medically stable he will be discharged to home with the wound vac and OV.
--- NOTE | 2017-07-31 09:53 | NUR ---
Discharge instructions reviewed with patient/family. Patient receptive and verbalizes understanding. Follow-up care arranged. Written instructions given to patient/. JORGE ALBERTO SCHULER
--- NOTE | 2017-07-31 10:05 | NUR ---
Pt discharged in care of with belongings and wound care supplies.
== END 2017-07-31 10:16 | disposition home health service (06) | DRG 853 ==
LOC: ED 15:17 → 5E 18:33 → EDHOLD 18:33 → 5E 18:55
PROVIDERS: Family Medicine; Internal Medicine; Internal Medicine Nephrology; Nurse Practitioner Family; ADMIT Internal Medicine
PROC: 0J9R0ZZ Drainage of Left Foot Subcutaneous Tissue and Fascia, Open Approach (ICD-10-PCS; principal; 2017-07-23)
PROC: 0QBP0ZX Excision of Left Metatarsal, Open Approach, Diagnostic (ICD-10-PCS; 2017-07-24)
PROC: 0JBR0ZZ Excision of Left Foot Subcutaneous Tissue and Fascia, Open Approach (ICD-10-PCS; 2017-07-24)
DX: A41.9 Sepsis, unspecified organism (principal); E43 Unspecified severe protein-calorie malnutrition; E11.22 Type 2 diabetes mellitus with diabetic chronic kidney disease; E11.40 Type 2 diabetes mellitus with diabetic neuropathy, unspecified; M86.172 Other acute osteomyelitis, left ankle and foot; L03.116 Cellulitis of left lower limb; E66.01 Morbid (severe) obesity due to excess calories; E87.1 Hypo-osmolality and hyponatremia; L97.421 Non-pressure chronic ulcer of left heel and midfoot limited to breakdown of skin; L02.612 Cutaneous abscess of left foot; I13.0 Hypertensive heart and chronic kidney disease with heart failure and stage 1 through stage 4 chronic kidney disease, or unspecified chronic kidney disease; B35.1 Tinea unguium; E11.621 Type 2 diabetes mellitus with foot ulcer; E11.65 Type 2 diabetes mellitus with hyperglycemia; M19.90 Unspecified osteoarthritis, unspecified site; E53.8 Deficiency of other specified B group vitamins; N18.3 Chronic kidney disease, stage 3 (moderate); E11.69 Type 2 diabetes mellitus with other specified complication; R26.2 Difficulty in walking, not elsewhere classified; E83.42 Hypomagnesemia; E83.39 Other disorders of phosphorus metabolism; I50.9 Heart failure, unspecified; I70.209 Unspecified atherosclerosis of native arteries of extremities, unspecified extremity; M60.9 Myositis, unspecified; Z53.29 Procedure and treatment not carried out because of patient's decision for other reasons; Z79.4 Long term (current) use of insulin; Z79.899 Other long term (current) drug therapy; Z88.5 Allergy status to narcotic agent; Z88.8 Allergy status to other drugs, medicaments and biological substances; Z90.49 Acquired absence of other specified parts of digestive tract; Z82.49 Family history of ischemic heart disease and other diseases of the circulatory system; Z80.0 Family history of malignant neoplasm of digestive organs; Z82.61 Family history of arthritis; Z83.6 Family history of other diseases of the respiratory system; Z80.3 Family history of malignant neoplasm of breast; Z68.38 Body mass index [BMI] 38.0-38.9, adult

== ENCOUNTER 2017-12-12 16:06 | Emergency (ER) | payer OTHER ==
[~2017-12-12] VITALS: Ht 180.3 cm; Wt 120.2 kg
[~2017-12-12 16:06] MED LIST changes: +LANTUS SOL100 UNIT/1 SQ; +LISINOPRIL5 MG PO; +NOVOLOG FL100 UNIT/1 SQ; +ZYVOX600 MG PO
[2017-12-12] MEDS ORDERED: DELTASONE20 M1 PO (18:31)
[2017-12-12] MEDS ORDERED: TRAMADOL HCL50 MG PO (18:32)
== END 2017-12-12 19:04 | disposition home or self-care (01) ==
LOC: ED 16:06
DX: M25.511 Pain in right shoulder (principal); G89.29 Other chronic pain; Z90.49 Acquired absence of other specified parts of digestive tract; Z98.890 Other specified postprocedural states; Z79.4 Long term (current) use of insulin; Z88.6 Allergy status to analgesic agent; Z88.5 Allergy status to narcotic agent; Z79.899 Other long term (current) drug therapy

== ENCOUNTER 2018-07-01 18:24 | Emergency (ER) | payer OTHER ==
[~2018-07-01] VITALS: Wt 129.3 kg
[~2018-07-01 18:24] MED LIST changes: +DELTASONE20 M1 PO; +TRAMADOL HCL50 MG PO
[2018-07-01 18:54] LABS: BASO # 0.1 10*3/uL (0.0-0.1); BASO % 0.6 % (0.0-1.0); EOS # 0.6 10*3/uL (0.0-0.4); EOS % 4.4 % (1.0-4.0); HEMATOCRIT 42.2 % (42.0-52.0); HEMOGLOBIN 13.8 g/dl (14.0-18.0); LYMPH # 2.9 10*3/uL (1.3-4.4); LYMPH % 22.3 % (27.0-41.0); MEAN CELL VOLUME 76.4 fl (80.0-94.0); MEAN CORPUSCULAR HGB CONC 32.7 g/dl (33.0-37.0); MEAN PLATELET VOLUME 9.7 fl (9.6-12.3); MONO # 1.1 10*3/uL (0.1-1.0); MONO % 8.1 % (3.0-9.0); NEUT # 8.4 10*3/uL (2.3-7.9); NEUT % 64.2 % (47.0-73.0); PLATELET COUNT AUTOMATED 309 10*3/uL (130-400); RED BLOOD COUNT 5.52 10*6/uL (4.50-5.90); RED CELL DISTRI WIDTH 15.3 % (0-14.5); WHITE BLOOD COUNT 13.1 10*3/uL (4.8-10.8)
[2018-07-01 19:12] LABS: ALBUMIN 3.2 gm/dl (3.1-4.5); CREATININE 1.48 mg/dL (0.70-1.30); POTASSIUM 4.4 mmol/L (3.5-5.1); TOTAL PROTEIN 7.5 gm/dL (6.4-8.2)
[2018-07-01] MEDS ORDERED: LANTUS SOL100 UNIT/1 SQ (19:16)
[2018-07-01] MEDS ORDERED: CLARITIN10 MG PO (19:19)
[2018-07-01] MEDS ORDERED: FLONASE ALLERG9.9 ML NAS (19:19)
[2018-07-01] MEDS ORDERED: TESSALON PERLE100 M1 PO (19:19)
== END 2018-07-01 19:25 | disposition home or self-care (01) ==
LOC: ED 18:24
PROVIDERS: Nurse Practitioner Family
DX: J06.9 Acute upper respiratory infection, unspecified (principal); I10 Essential (primary) hypertension; E11.621 Type 2 diabetes mellitus with foot ulcer; E11.40 Type 2 diabetes mellitus with diabetic neuropathy, unspecified; M19.90 Unspecified osteoarthritis, unspecified site; E66.1 Drug-induced obesity; Z88.6 Allergy status to analgesic agent; Z79.4 Long term (current) use of insulin

== ENCOUNTER 2019-01-19 14:14 | Inpatient (IN) | payer OTHER ==
[~2019-01-19] VITALS: Ht 180.3 cm; Wt 122.5 kg
--- NOTE | ~2019-01-19 | EKG ---
[place], [place] ELECTROCARDIOGRAM REPORT NAME: LIZETT MOSQUEDA SR UNIT #: [id number] ROOM: 422 DOCTOR: DAVID DRAFT REPORT BIRTHDATE: [birth year] [facility] Test Date: 2019-01-19 Test Time: 15:08:49 Pat Name: LIZETT MOSQUEDA Department: Room: 422 Gender: M Oyster Buyer: : 1945 Requested By: BAL TOPETE Order Number: [id number] Reading MD: Arturo Izaguirre MD Measurements Intervals [place] Rate: 57 P: 10 NJ: 190 QRS: -34 QRSD: 92 T: 24 QT: 399 QTc: 389 Interpretive Statements Sinus badycardia Abnormal R-wave progression, early transition Inferior infarct, old Lateral leads are also involved Electronically Signed On 01-20-2019 11:44:02 PDT by Arturo Izaguirre MD CM:EKGRPT:ELECTROCARDIOGRAM REPORT [id number] BAL TOPETE MD EPIPHTERRA DRAFT REPORT BAL TOPETE MD
[~2019-01-19 14:14] MED LIST changes: +CLARITIN10 MG PO; +FLONASE ALLERG9.9 ML NAS; -NOVOLOG FL100 UNIT/1 SQ; +NOVOLOG FL100 UNIT/2 SQ; +TESSALON PERLE100 M1 PO
[2019-01-19 14:21] VITALS: BP 139/70
[2019-01-19 15:21] LABS: BASO # 0.1 10*3/uL (0.0-0.1); BASO % 0.5 % (0.0-1.0); EOS # 0.5 10*3/uL (0.0-0.4); HEMATOCRIT 43.9 % (42.0-52.0); HEMOGLOBIN 14.1 g/dl (14.0-18.0); LYMPH # 2.4 10*3/uL (1.3-4.4); MEAN CELL VOLUME 81.4 fl (80.0-94.0); MEAN CORPUSCULAR HGB 26.2 pg (27.0-31.0); MEAN CORPUSCULAR HGB CONC 32.1 g/dl (33.0-37.0); MEAN PLATELET VOLUME 9.4 fl (9.6-12.3); MONO # 1.1 10*3/uL (0.1-1.0); MONO % 8.5 % (3.0-9.0); NEUT # 8.4 10*3/uL (2.3-7.9); NEUT % 67.6 % (47.0-73.0); PLATELET COUNT AUTOMATED 290 10*3/uL (130-400); RED BLOOD COUNT 5.39 10*6/uL (4.50-5.90); RED CELL DISTRI WIDTH 15.6 % (0-14.5); WHITE BLOOD COUNT 12.4 10*3/uL (4.8-10.8)
[2019-01-19 15:34] LABS: ACT PARTIAL THROMBO TIME 28.5 SECONDS (20.0-32.1)
[2019-01-19 15:39] LABS: ALBUMIN 3.3 gm/dl (3.1-4.5); ALKALINE PHOSPHATASE 47 U/L (45-117); BUN 31 mg/dl (7-24); CHLORIDE 111 mmol/L (98-107); CREATININE 1.39 mg/dL (0.70-1.30); POTASSIUM 5.2 mmol/L (3.5-5.1); SGOT/AST 9 IU/L (3-35); SGPT/ALT 16 U/L (12-78); SODIUM 141 mmol/L (136-145); TOTAL PROTEIN 7.3 gm/dL (6.4-8.2)
[2019-01-19 15:46] LABS: TROPONIN I < 0.015 ng/ml (<0.045)
[2019-01-19 16:00] VITALS: BP 124/68
--- NOTE | 2019-01-19 18:15 | NUR ---
Notified ER that patients room was clean.
--- NOTE | 2019-01-19 18:21 | NUR ---
Called pharmacy on file to verify home medications and pharmacist said he does not have any regular medications on file.
[2019-01-19 18:30] VITALS: BP 155/70
--- NOTE | 2019-01-19 18:35 | NUR ---
A 73, admitted to , under the services of EMILY Carcamo DO with a diagnosis of Near Syncope, Hyperkalemia. Chief complaint is Multiple complaints. Patient arrived via stretcher from ER. Monitor applied. Initial assessment completed. Vital signs taken and recorded. EMILY CARCAMO DO notified of admission to the unit. Orders received. See assessment for past medical history, medications and allergies. Patient and/or family oriented to unit. [address] visitation policy reviewed. Clothing/patient valuable form completed. KIMBERLEE HUGHES
--- NOTE | 2019-01-19 18:41 | NUR ---
Patient and were not sure on dosages of home meds and [facility] [place] Will follow up with clinic in morning and have med list faxed to 4E.
--- NOTE | 2019-01-19 18:46 | NUR ---
Spoke with Dr. Zambrano regarding consult for ulcer on Right Great Toe. No new orders. Physician to follow up at bedside.
--- NOTE | 2019-01-19 19:20 | NUR ---
PT IS AWAKE AND SITTING UP IN BED AT THIS TIME. NO S/S OF DISTRESS NOTED. RESPS ARE EASY AND NONLABORED. PT DENIES CHEST PAIN, SOB. BED LOW, CALL LIGHT WITHIN REACH. WILL CONTINUE TO MONITOR.
--- NOTE | 2019-01-19 19:21 | NUR ---
Contacted physician for wound care orders.
--- NOTE | 2019-01-19 21:59 | NUR ---
24 HR CHART CHECK COMPLETE.
[2019-01-20] VITALS: BP 144/79
[2019-01-20 06:26] LABS: BASO # 0.1 10*3/uL (0.0-0.1); BASO % 0.6 % (0.0-1.0); EOS # 0.8 10*3/uL (0.0-0.4); EOS % 6.6 % (1.0-4.0); HEMATOCRIT 43.6 % (42.0-52.0); HEMOGLOBIN 14.1 g/dl (14.0-18.0); LYMPH # 3.6 10*3/uL (1.3-4.4); LYMPH % 29.2 % (27.0-41.0); MEAN CELL VOLUME 81.3 fl (80.0-94.0); MEAN CORPUSCULAR HGB 26.3 pg (27.0-31.0); MEAN CORPUSCULAR HGB CONC 32.3 g/dl (33.0-37.0); MEAN PLATELET VOLUME 10.1 fl (9.6-12.3); MONO # 0.9 10*3/uL (0.1-1.0); MONO % 7.3 % (3.0-9.0); NEUT # 6.8 10*3/uL (2.3-7.9); NEUT % 55.9 % (47.0-73.0); PLATELET COUNT AUTOMATED 273 10*3/uL (130-400); RED BLOOD COUNT 5.36 10*6/uL (4.50-5.90); RED CELL DISTRI WIDTH 15.6 % (0-14.5); WHITE BLOOD COUNT 12.2 10*3/uL (4.8-10.8)
[2019-01-20 06:46] LABS: ALBUMIN 3.2 gm/dl (3.1-4.5); ALKALINE PHOSPHATASE 46 U/L (45-117); BUN 25 mg/dl (7-24); CHLORIDE 109 mmol/L (98-107); CHOLESTEROL 147 mg/dL (<200); CREATININE 1.14 mg/dL (0.70-1.30); FREE T4 1.03 ng/dl (0.76-1.46); PHOSPHOROUS 3.4 mg/dL (2.5-4.9); POTASSIUM 4.5 mmol/L (3.5-5.1); SGOT/AST 10 IU/L (3-35); SGPT/ALT 17 U/L (12-78); SODIUM 140 mmol/L (136-145); TOTAL PROTEIN 7.4 gm/dL (6.4-8.2); TRIGLYCERIDES 111 mg/dl (<150); VLDL CHOLESTEROL 22 mg/dL (6-40)
[2019-01-20 06:51] LABS: HDL CHOLESTEROL 33 mg/dl (40-60); LDL CHOLESTEROL 92 mg/dL (9-159)
--- NOTE | 2019-01-20 07:14 | NUR ---
LIZETT MOSQUEDA SR [id number] Please refer to the physician's history and physical for past medical history, comorbid conditions, and allergies. Diagnosis: NEAR SYNCOPE HYPERKALEMIA Omar Score: 20,LOW OR NO RISK WOUND DESCRIPTIONS: Wound Number: 1 Location of the wound: plantar aspect of right great toe Thickness: Full Size: 1.4cm x 0.6cm x 0.6cm Tunneling: none Undermining: none Sinus Tract: none Presence of Exudate: Serosanguineous Amount: Moderate Color: Red, yellow Odor: None Periwound Skin Appearance: Macerated Wound edges: approximated Pain (associated with wound): none at time of assessment How does patient state this happened? pt stated this started two months ago when he fell out of bed and he was trying to get up and took a chunk of skin off of his toe. He states he follows with podiatry at the [place] and he stated he has an appointment next . Intact scab noted to right lower quadrant pt stated he had surgery 36 years ago and he stated that it comes and goes because he picks at it. No drainage at time of assessment. No redness surrounding area. Scar tissue noted to surrounding scab area. Surface the patient is resting on: Position Pro SKIN PREVENTION RECOMMENDATION: 1. Pressure redistribution support surface as appropriate 2. Elevate heels 3. Remove boots/TEDS every shift and reapply 4. Head of bed 30 degrees as tolerated 5. Assess nutrition and hydration 6. Manage moisture 7. Avoid the use of containment devices while in bed 8. Use absorptive products on surfaces limit layers of linens on bed 9. Turn and reposition every 1-2 hours in bed and every 1 hour in chair as tolerated 10. Weight shifts every 15 minutes while up in chair 11. Offloading with pillows or device to keep heels elevated off bed 12. Monitor skin at least every shift 13. Inspect under medical devices twice a day WOUND TREATMENT RECOMMENDATIONS: Venous and arterial studies due to non-healing wound. Imaging studies to right foot due to non-healing wound. Consult podiatry due to non-healing wound to right plantar aspect of foot and follows with podiatry outpatient. Full thickness guidelines: Cleanse right plantar aspect of foot with nss and apply sureprep around the wound therahoney to wound bed lightly pack with maxorb AG and apply dsd daily and prn for soiling. Heel raiser pro boots while in bed.
[2019-01-20 07:48] LABS: VITAMIN D, 25-HYDROXY 31.4 ng/mL (30-100)
--- NOTE | 2019-01-20 08:40 | NUR ---
Called [place] [facility] for home med list.
[2019-01-20] MEDS ORDERED: ZESTRIL,PRINIVIL5 MG PO (08:53)
[2019-01-20] MEDS ORDERED: ATORVASTATIN CA20 M1 PO (08:54)
[2019-01-20] MEDS ORDERED: B121000 MCG/1 PO (08:55)
[2019-01-20] MEDS ORDERED: ASPIRIN CHEWABL81 MG PO (08:59)
[2019-01-20] MEDS ORDERED: PAIN RELIEVER325 MG PO (09:01)
[2019-01-20] MEDS ORDERED: BETADINE1 EACH T (09:02)
[2019-01-20] MEDS ORDERED: MEDIHONEY15 ML T (09:03)
[2019-01-20] MEDS ORDERED: ACCU-CHEK AVIV1 EACH MC (09:04)
[2019-01-20] MEDS ORDERED: NEEDLES1 EAC4 MC (09:05)
[2019-01-20] MEDS ORDERED: ACCU-CHEK SOFT1 EACH MC (09:05)
[2019-01-20] MEDS ORDERED: INSULIN SYRING1 EA16 MC (09:07)
--- NOTE | 2019-01-20 09:10 | NUR ---
Notified Dr. Thompson of patients updated med reconciliation completion.
--- NOTE | 2019-01-20 09:23 | NUR ---
Dr. Thompson notified of wound care recommendations.
[2019-01-20 09:40] VITALS: BP 134/72
[2019-01-20 12:00] VITALS: BP 155/90
--- NOTE | 2019-01-20 12:00 | NUR ---
Senior Sustainability Advisor in to talk to patient. Patient states lives at HOME with . There are FEW steps in the home. Physician: OTONIEL Pharmacy: [facility] health services: NONE Patient's level of ADLs: INDEPENDENT Patient has working utilities: YES DME: GUDELIA Follow-up physician's appointment after d/c: WILL BE MADE BY HOSPITALIST NURSE DIRECTOR ON DISCHARGE Does patient want to access PORTAL?: NO Discharge plan PT STATES HE LIVES AT HOME WITH HIS AND IS INDEPENDENT IN HIS CARE. DENIES ANY NEEDS AFTER DISCHARGE. PLANS TO RETURN HOME. STATES WILL TAKE HIM HOME. WILL CONTINUE TO FOLLOW.. ALEXANDER JOHNSON
--- NOTE | 2019-01-20 14:45 | NUR ---
Discharge instructions reviewed with patient/family. Patient receptive and verbalizes understanding. Follow-up care arranged. Written instructions given to patient/family. Patient and spouse were educated on sliding scale and diabetic diet. Patient was wheeled from unit with all personal belongins accounted for. KIMBERLEE HUGHES
== END 2019-01-20 14:45 | disposition home or self-care (01) | DRG 312 ==
LOC: ED 14:14 → EDHOLD 16:59 → 4E 16:59
PROVIDERS: Emergency Medicine; Internal Medicine; ADMIT Internal Medicine
DX: R55 Syncope and collapse (principal); N17.0 Acute kidney failure with tubular necrosis; E11.649 Type 2 diabetes mellitus with hypoglycemia without coma; M19.90 Unspecified osteoarthritis, unspecified site; E66.01 Morbid (severe) obesity due to excess calories; R00.1 Bradycardia, unspecified; E11.621 Type 2 diabetes mellitus with foot ulcer; L97.512 Non-pressure chronic ulcer of other part of right foot with fat layer exposed; E11.51 Type 2 diabetes mellitus with diabetic peripheral angiopathy without gangrene; E55.9 Vitamin D deficiency, unspecified; E53.8 Deficiency of other specified B group vitamins; E11.49 Type 2 diabetes mellitus with other diabetic neurological complication; E11.65 Type 2 diabetes mellitus with hyperglycemia; E87.5 Hyperkalemia; Z88.8 Allergy status to other drugs, medicaments and biological substances; Z90.49 Acquired absence of other specified parts of digestive tract; Z82.49 Family history of ischemic heart disease and other diseases of the circulatory system; Z83.6 Family history of other diseases of the respiratory system; Z79.899 Other long term (current) drug therapy; Z80.8 Family history of malignant neoplasm of other organs or systems; Z80.3 Family history of malignant neoplasm of breast; Z79.82 Long term (current) use of aspirin; Z79.4 Long term (current) use of insulin

== ENCOUNTER → 2019-03-17 | Day surgery (SDC) | payer OTHER ==
[~2019-03-17] VITALS: Ht 177.8 cm; Wt 115.7 kg
[~2019-03-17] MED LIST changes: +ACCU-CHEK AVIV1 EACH MC; +ACCU-CHEK SOFT1 EACH MC; +ASPIRIN CHEWABL81 MG PO; +ATORVASTATIN CA20 M1 PO; +B121000 MCG/1 IM; +BETADINE1 EACH T; +INSULIN SYRING1 EA16 MC; +MEDIHONEY15 ML T; +NEEDLES1 EAC4 MC; +PAIN RELIEVER325 MG PO; +ZESTRIL,PRINIVIL5 MG PO
--- NOTE | ~2019-03-17 | O ---
[place], [place] OPERATIVE NOTE NAME: LIZETT MOSQUEDA SR UNIT #: [id number] ROOM: DOCTOR: SONI SALVADOR MD BIRTHDATE: [birth year] DOS: 03/17/2019 PREOPERATIVE DIAGNOSIS: Cataract, right eye. POSTOPERATIVE DIAGNOSIS: Cataract, right eye. OPERATION: Extracapsular cataract extraction by phacoemulsification with posterior chamber intraocular lens implantation, right eye. ANESTHESIA: Monitored standby. OPERATIVE FINDINGS AND PROCEDURE: 2% Xylocaine topical anesthetic gel was applied to the eye in the preop area. The patient was taken to the operating room and prepped and draped in the standard fashion for sterile intraocular surgery. A time out procedure was performed verifying correct patient, correct site and corrects lens with Lali Salvador M.D. The operating microscope was swung into position and the lid speculum was inserted. Using a Deanna paracentesis blade, a paracentesis was made through clear cornea. Shugarcaine was injected into the anterior chamber. Viscoelastic was used to fill the anterior chamber. Using a metal keratome a 2.4 mm self-sealing clear corneal cataract incision was made temporally at the limbus. Using a pre-bent 25 gauge cystotome needle, a standard continuous curvilinear capsulorrhexis was performed. The anterior capsule was removed with forceps. The lens nucleus was hydrodissected and phacoemulsified in the posterior chamber. Cortical material was removed with the irrigation aspiration hand piece and the posterior capsule was then polished with a curet under irrigation. The posterior chamber and capsular bag were filled with viscoelastic. A posterior chamber intraocular lens manufactured by: [employer], Model #[id number], and 21.5 diopters in strength were then inserted into the posterior chamber and within the capsular bag using the lens cartridge and injector system. Viscoelastic was removed using the irrigation aspiration handpiece. The anterior chamber was filled with balanced salt solution through the paracentesis. Both the paracentesis site and cataract incisions were hydrated with BSS and verified to be water-tight and self-sealing. Cefuroxime 1 mg/0.1 mL was injected into the anterior chamber through the paracentesis site. The incision checked to be water-tight using a Weck-Adelaida sponge. The integrity of the cataract wound and ocular tension were checked. Lid speculum and drapes were removed. The patient was transferred from the operating room to the recovery room in satisfactory condition. [place], [place] OPERATIVE NOTE NAME: LIZETT MOSQUEDA SR UNIT #: [id number] ROOM: DOCTOR: SONI SALVADOR MD BIRTHDATE: [birth year] SONI SALVADOR MD CM:OPRECORD:OPERATIVE NOTE [id number] SONI SALVADOR MD 03/17/19 0933 interface
[2019-03-17 06:45] VITALS: BP 99/69
[2019-03-17 08:10] VITALS: BP 117/63
[2019-03-17 08:25] VITALS: BP 125/73
[2019-03-17 08:40] VITALS: BP 138/73
== END | disposition home or self-care (01) ==
LOC: SDC 03-11 08:00
DX: H25.811 Combined forms of age-related cataract, right eye (principal); I10 Essential (primary) hypertension; E11.9 Type 2 diabetes mellitus without complications; Z98.890 Other specified postprocedural states; Z79.899 Other long term (current) drug therapy; Z79.84 Long term (current) use of oral hypoglycemic drugs; Z88.8 Allergy status to other drugs, medicaments and biological substances; Z90.49 Acquired absence of other specified parts of digestive tract; Z82.49 Family history of ischemic heart disease and other diseases of the circulatory system

== ENCOUNTER 2019-04-18 14:38 | Inpatient (IN) | payer OTHER ==
[~2019-04-18] VITALS: Ht 180.3 cm; Wt 112.2 kg
[~2019-04-18 14:38] MED LIST changes: -B121000 MCG/1 IM; +B121000 MCG/1 PO
[2019-04-18 14:40] VITALS: BP 100/62
[2019-04-18 15:26] LABS: BASO # 0.1 10*3/uL (0.0-0.1); EOS # 0.5 10*3/uL (0.0-0.4); EOS % 3.9 % (1.0-4.0); HEMATOCRIT 44.1 % (42.0-52.0); HEMOGLOBIN 14.4 g/dl (14.0-18.0); LYMPH # 2.5 10*3/uL (1.3-4.4); LYMPH % 21.8 % (27.0-41.0); MEAN CELL VOLUME 81.1 fl (80.0-94.0); MEAN CORPUSCULAR HGB 26.5 pg (27.0-31.0); MEAN CORPUSCULAR HGB CONC 32.7 g/dl (33.0-37.0); MEAN PLATELET VOLUME 10.3 fl (9.6-12.3); MONO # 0.8 10*3/uL (0.1-1.0); NEUT # 7.6 10*3/uL (2.3-7.9); PLATELET COUNT AUTOMATED 305 10*3/uL (130-400); RED BLOOD COUNT 5.44 10*6/uL (4.50-5.90); RED CELL DISTRI WIDTH 14.1 % (0-14.5); WHITE BLOOD COUNT 11.5 10*3/uL (4.8-10.8)
[2019-04-18 15:54] LABS: ALBUMIN 3.1 gm/dl (3.1-4.5); CREATININE 1.84 mg/dL (0.70-1.30); POTASSIUM 4.1 mmol/L (3.5-5.1); TOTAL PROTEIN 7.6 gm/dL (6.4-8.2)
--- NOTE | 2019-04-18 16:48 | NUR ---
PATIENT ROOM IS NOT READY. WILL TAKE PATIENT UP AT ABOUT 1705.
--- NOTE | 2019-04-18 17:27 | NUR ---
A 73, admitted to , under the services of CIERA Noland DO with a diagnosis of OPEN WOUND OF GREAT TOE, CELLULITIS. Chief complaint is INFECTION. Patient arrived via bed from ER. Monitor applied. Initial assessment completed. Vital signs taken and recorded. CIERA NOLAND DO notified of admission to the unit. Orders received. See assessment for past medical history, medications and allergies. Patient and/or family oriented to unit. [facility] visitation policy reviewed. Clothing/patient valuable form completed. IRAIDA NG
[2019-04-18 17:30] VITALS: BP 135/74
--- NOTE | 2019-04-18 17:38 | NUR ---
PATIENT TAKEN TO 4TH FLOOR BY THIS NURSE. BEDSIDE GIVEN TO IRAIDA VALENZUELA.
--- NOTE | 2019-04-18 18:22 | NUR ---
CONSULT CALLED FOR WOUND TO RIGHT TOE. WILL BE IN TO SEE PT TOMORROW.
--- NOTE | 2019-04-18 18:25 | NUR ---
INFECTIOUS DISEASE ANSWERING SERVICE NOTIFIED OF CONSULT FOR DR. CAMPBELL. AWAITING CALL BACK.
--- NOTE | 2019-04-18 18:41 | NUR ---
DR. JUÁREZ NOTIFIED OF COMPLETE MED REC. ALSO NOTIFIED THAT WOUND ORDERS ARE NEEDED ON R FOOT
--- NOTE | 2019-04-18 18:44 | NUR ---
PT STATED SHE HAD BM AT THIS TIME.
[2019-04-18] MEDS ORDERED: LANTUS SOL100 UNIT/1 SQ (19:12)
[2019-04-18 20:00] VITALS: BP 113/59
[2019-04-19] VITALS: BP 131/79
[2019-04-19 06:21] LABS: BASO # 0.1 10*3/uL (0.0-0.1); BASO % 0.6 % (0.0-1.0); EOS # 0.7 10*3/uL (0.0-0.4); HEMATOCRIT 43.5 % (42.0-52.0); HEMOGLOBIN 13.8 g/dl (14.0-18.0); LYMPH # 3.2 10*3/uL (1.3-4.4); LYMPH % 24.6 % (27.0-41.0); MEAN CELL VOLUME 81.3 fl (80.0-94.0); MEAN CORPUSCULAR HGB 25.8 pg (27.0-31.0); MEAN CORPUSCULAR HGB CONC 31.7 g/dl (33.0-37.0); MEAN PLATELET VOLUME 10.2 fl (9.6-12.3); MONO % 7.6 % (3.0-9.0); NEUT % 61.7 % (47.0-73.0); PLATELET COUNT AUTOMATED 285 10*3/uL (130-400); RED BLOOD COUNT 5.35 10*6/uL (4.50-5.90)
[2019-04-19 06:32] LABS: ALBUMIN 2.8 gm/dl (3.1-4.5); ALKALINE PHOSPHATASE 49 U/L (45-117); BUN 29 mg/dl (7-24); CHLORIDE 109 mmol/L (98-107); CHOLESTEROL 101 mg/dL (<200); CREATININE 1.13 mg/dL (0.70-1.30); HDL CHOLESTEROL 29 mg/dl (40-60); LDL CHOLESTEROL 46 mg/dL (9-159); PHOSPHOROUS 3.1 mg/dL (2.5-4.9); POTASSIUM 3.7 mmol/L (3.5-5.1); SGOT/AST 9 IU/L (3-35); SGPT/ALT 11 U/L (12-78); SODIUM 140 mmol/L (136-145); TRIGLYCERIDES 129 mg/dl (<150); VLDL CHOLESTEROL 26 mg/dL (6-40)
--- NOTE | 2019-04-19 09:00 | NUR ---
Grey Goods Examiner in to talk to patient. Patient states lives at home with . There are few steps in the home. Physician: damon; Pharmacy: [facility] Home health services: none Patient's level of ADLs: INDEPENDENT Patient has working utilities: all working DME: cane Follow-up physician's appointment after d/c: will be made by hospitalist nurse director upon discharge Does patient want to access PORTAL?: no Discharge plan discussed with patient, he states he lives at home with , he states he is independent in adls and ambulation, has a cane to use if needed, patient was admitted with an open wound, discussed with him if he would need stencil printer iv antibiotics and physical therapy, the area detention facilities that accepted his insurance, patient stated he was aware of the facilities but didn't want to make a decision regarding going to one until he was aware of what he would need on discharge, case management will follow. ACE PAYAN
[2019-04-19 09:09] LABS: VITAMIN D, 25-HYDROXY 19.3 ng/mL (30-100)
--- NOTE | 2019-04-19 09:22 | NUR ---
LIZETT MOSQUEDA SR, I [id number] Please refer to the physician's history and physical for past medical history, comorbid conditions, and allergies. Diagnosis: OPEN WOUND OF GREAT TOW, CELLULITIS Omar Score: 20,LOW OR NO RISK WOUND DESCRIPTIONS: Wound Number: 1 Location of the wound: right great toe Type of wound: stage 4 Thickness: Full Size: 0.6cm x 0.8cm x 0.7cm Tunneling: none Undermining: none Sinus Tract: none Presence of Exudate: none Amount: None Color: Red Odor: Foul Periwound Skin Appearance: Erythema Wound edges: approximated Pain (associated with wound): tender to touch How does patient state this happened? Patient states that he follows with Dr. Christiana Torres at the [place] for this area. If wound is on legs/feet or hands, capillary refill time, pulses, color temp, sensation: Cap refill < 3 seconds. Bone exposed at time of assessment. Wound Number: 2 Location of the wound: right medial great toe Type of wound: stage 4 Thickness: Full Size: 2.5cm x 2cm x 0.1cm Tunneling: none Undermining: none Sinus Tract: none Presence of Exudate: Serous sanguineous Amount: Light Color: Red, Black, Yellow Odor: Foul Periwound Skin Appearance: Erythema Wound edges: approximated Pain (associated with wound): tender to touch Christiana Torres at the [facility] for this area. If wound is on legs/feet or hands, capillary refill time, pulses, color temp, sensation: Cap refill < 3 seconds. Surface the patient is resting on: Isoflex SKIN PREVENTION RECOMMENDATION: 1. Pressure redistribution support surface as appropriate 2. Elevate heels 3. Remove boots/TEDS every shift and reapply 4. Head of bed 30 degrees as tolerated 5. Assess nutrition and hydration 6. Manage moisture 7. Avoid the use of containment devices while in bed 8. Use absorptive products on surfaces limit layers of linens on bed 9. Turn and reposition every 1-2 hours in bed and every 1 hour in chair as tolerated 10. Weight shifts every 15 minutes while up in chair 11. Offloading with pillows or device to keep heels elevated off bed 12. Monitor skin at least every shift 13. Inspect under medical devices twice a day WOUND TREATMENT RECOMMENDATIONS: Right foot xray recommends three phase bone scan due to possible osteo. Wound culture of right great toe. Arterial/Venous studies to BLE. Podiatry and ID already consulted.
--- NOTE | 2019-04-19 10:32 | NUR ---
Dr. Garcia notified of wound care recommendations.
[2019-04-19 12:00] VITALS: BP 135/76
[2019-04-19 16:00] VITALS: BP 145/83
[2019-04-19 20:00] VITALS: BP 131/74
[2019-04-20] VITALS (9 sets, daily range): BP systolic 111–143; BP diastolic 62–89
--- NOTE | 2019-04-20 01:15 | NUR ---
NOTIFIED OF BP 88/46 MANUALLY FOLLOWING 'S ORDERS FOR PO METOPROLOL AND 250 CC FLUID BOLUS. INSTRUCTED TO GIVE ANOTHER 250 CC DOSE OF NSS. AWARE PT ASYMPTOMATIC.
--- NOTE | 2019-04-20 01:37 | NUR ---
PT ASLEEP IN BED. NO S/S OF DISTRESS NOTED. WILL MONITOR. CALL LIGHT IN REACH.
[2019-04-20 06:03] LABS: BASO # 0.1 10*3/uL (0.0-0.1); BASO % 0.6 % (0.0-1.0); EOS # 0.7 10*3/uL (0.0-0.4); EOS % 5.8 % (1.0-4.0); HEMATOCRIT 43.2 % (42.0-52.0); HEMOGLOBIN 13.9 g/dl (14.0-18.0); LYMPH # 3.3 10*3/uL (1.3-4.4); LYMPH % 28.1 % (27.0-41.0); MEAN CELL VOLUME 81.2 fl (80.0-94.0); MEAN CORPUSCULAR HGB 26.1 pg (27.0-31.0); MEAN CORPUSCULAR HGB CONC 32.2 g/dl (33.0-37.0); MEAN PLATELET VOLUME 10.2 fl (9.6-12.3); MONO # 0.8 10*3/uL (0.1-1.0); MONO % 6.8 % (3.0-9.0); NEUT # 6.8 10*3/uL (2.3-7.9); NEUT % 58.4 % (47.0-73.0); PLATELET COUNT AUTOMATED 294 10*3/uL (130-400); RED BLOOD COUNT 5.32 10*6/uL (4.50-5.90); RED CELL DISTRI WIDTH 14.1 % (0-14.5); WHITE BLOOD COUNT 11.7 10*3/uL (4.8-10.8)
[2019-04-20 06:20] LABS: BUN 24 mg/dl (7-24); CHLORIDE 107 mmol/L (98-107); CREATININE 1.06 mg/dL (0.70-1.30); POTASSIUM 3.8 mmol/L (3.5-5.1); SODIUM 138 mmol/L (136-145)
--- NOTE | 2019-04-20 08:10 | NUR ---
PT RESTING IN BED. NO C/O AT THIS TIME. DRESSING RIGHT FOOT D/I. CALL LIGHT IN REACH. SEE SHIFT ASSESSMENT.
--- NOTE | 2019-04-20 09:00 | NUR ---
case management visits with patient, again discussed with him a short term custodial prior to returning home, patient is still not inagreement, discussed with him that he would need adjunct faculty for medical terminology iv antibiotics and was there anyone at home to learn how to administer them, he stated his insurance company will send a nurse to see him, educated him that the insurance nurses do not do this, that home health companies will only teach someone how to do this, patient stated his will be visiting today for case management to discuss this with her
--- NOTE | 2019-04-20 09:24 | NUR ---
SPOKE WITH [facility] IN SURGERY PER DR. CHAVEZ REQUEST. THEY ARE GONNA TRY TO DO PICC LINE WHGILE PT IS DONE THERE.
--- NOTE | 2019-04-20 10:15 | NUR ---
PT OFF THE FLOOR FOR PICC LINE AND DEBRIDEMENT.
--- NOTE | 2019-04-20 13:30 | NUR ---
PT SITTING UP IN BED. DRESSING RIGHT FOOT D/I. NO C/O AT THIS TIME. [id number]-[id number], SEE EMAR. PICC LINE UPPER RIGHT ARM INTACT. AT HIS SIDE. CALL LIGHT IN REACH.
--- NOTE | 2019-04-20 15:35 | NUR ---
ASSUMED CARE FOR THIS PT AT THIS TIME. NO C/O VOICED. DRSG TO RIGHT FOOT DRY/INTACT W/SURGICAL SHOE ON AND FOOT ELEVATED. PT TEACHING GIVEN ON LIMITED WT BEARING TO RT FOOT. PT ACKNOWLEDGES. AT BEDSIDE. CALL LIGHT IN REACH.
[2019-04-21] VITALS: BP 136/73
[2019-04-21 06:21] LABS: BASO # 0.1 10*3/uL (0.0-0.1); BASO % 0.6 % (0.0-1.0); EOS # 0.6 10*3/uL (0.0-0.4); EOS % 4.5 % (1.0-4.0); HEMATOCRIT 42.3 % (42.0-52.0); HEMOGLOBIN 13.6 g/dl (14.0-18.0); LYMPH % 24.3 % (27.0-41.0); MEAN CELL VOLUME 80.9 fl (80.0-94.0); MEAN CORPUSCULAR HGB CONC 32.2 g/dl (33.0-37.0); MEAN PLATELET VOLUME 10.2 fl (9.6-12.3); MONO # 0.8 10*3/uL (0.1-1.0); MONO % 6.7 % (3.0-9.0); NEUT # 7.9 10*3/uL (2.3-7.9); NEUT % 63.5 % (47.0-73.0); PLATELET COUNT AUTOMATED 300 10*3/uL (130-400); RED BLOOD COUNT 5.23 10*6/uL (4.50-5.90); RED CELL DISTRI WIDTH 14.1 % (0-14.5); WHITE BLOOD COUNT 12.4 10*3/uL (4.8-10.8)
[2019-04-21 06:52] LABS: CHLORIDE 105 mmol/L (98-107); POTASSIUM 3.7 mmol/L (3.5-5.1); SODIUM 136 mmol/L (136-145)
[2019-04-21 06:57] LABS: BUN 20 mg/dl (7-24); CREATININE 1.01 mg/dL (0.70-1.30)
[2019-04-21 08:00] VITALS: BP 111/65
--- NOTE | 2019-04-21 08:23 | NUR ---
case management visits with patient, again discussed with him a short term jail stay for rehab and iv antibiotics. he has agreed to go to [facility], digital media planner will send referral and patient will need an insurance precert prior to being discharged, digital media planner will also call and inform patient's of the referral
--- NOTE | 2019-04-21 08:31 | NUR ---
Patient agreeable to snf placement; insurance in network with [facility] or [facility]. Patient stating he doesn't want to go to [place], he wants to stay local. Contacted [facility] and faxed initial referral. Will require PT/OT and a precert.
--- NOTE | 2019-04-21 10:29 | NUR ---
[facility] stating they are unable to accept this patient as they cannot meet his needs at this time. Contacted the [facility] and faxed referral for review.
[2019-04-21 12:00] VITALS: BP 137/78
--- NOTE | 2019-04-21 13:20 | NUR ---
Occupational therapy orders received and OT eval completed with POC in full on floor four. Patient precautions include fall risk, right surgical shoe, "limited weight bearing with surgical shoe" per operative note. Per OT eval and chart review, OTR recommends patient discharge to SNF for continued OT/PT treatment. If refused, patient discharge to home with home health SN, OT, PT with 24/7 assist. Patient would benefit from continued OT treatment to maximize independence in ADLs, safety, and functional mobility/transfers. Thank you for the referral. BRITANY Brown/Chrissie
--- NOTE | 2019-04-21 13:21 | NUR ---
PHYSICAL THERAPY Physical therapy evaluation complete, 4E. Low complexity PT evaluation (92246) per chart review and evaluation. PT to progress with transfers, gait, LE strength, and balance per POC. Right LE precaution "limited weight bearing with surgical shoe" per operative report. Recommend SNF at discharge. Thank you. Yisel Hull,PT,DPT
[2019-04-21 16:00] VITALS: BP 138/73
[2019-04-21 20:00] VITALS: BP 115/64
--- NOTE | 2019-04-21 20:00 | NUR ---
RESTING IN BED WITH HOB SLIGHTLY ELEVATED. PICC INTACT TO RIGHT UPPER ARM. HEP LOCK INTACT TO RIGHT HAND. PT. VOICES NO C/O AT THIS TIME. CALL LIGHT WITHIN REACH.
--- NOTE | 2019-04-21 22:00 | NUR ---
BLOOD SUGAR 356; COVERAGE GIVEN PER EMAR.
[2019-04-22] VITALS: BP 125/70
--- NOTE | 2019-04-22 04:00 | NUR ---
RESTING IN BED; VOICES NO C/O AT THIS TIME. CALL LIGHT WITHIN REACH.
--- NOTE | 2019-04-22 06:00 | NUR ---
BLOOD SUGAR 240; COVERAGE GIVEN PER EMAR. PT. VOICES NO C/O AT THIS TIME. CALL LIGHT WITHIN REACH.
--- NOTE | 2019-04-22 07:47 | NUR ---
[facility] stating they are able to accept this patient depending on which antibiotic patient will be on upon discharge. They will obtain a wound vac. Requires PT/OT precert.
--- NOTE | 2019-04-22 07:55 | NUR ---
Updates and wound vac information/PT/OT all faxed to [email or web address] for review. Requires precert.
[2019-04-22 08:00] VITALS: BP 102/74
--- NOTE | 2019-04-22 08:45 | NUR ---
OT NOTE Pt was seen this A.M. 1:1 for 20 minute OT session. Upon arrival pt was supine in bed. Pt identified by name and and had no complaints at this time. Pt presented to therapy with RLE wound vac and surgical shoe in place. Pt was re educated on weight bearing status of "limited weight bearing with surgical shoe." Pt transferred supine to sit EOB with SBA. Sit to stand completed from bed level with CGA for safety. Upon inital rise pt had LOB backwards that required Devin to correct. Functional mobility then completed into the bathroom with CGA while maintaining good carry over of weight bearing status. Pt transferred on/off standard commode with SBA and use of grab bar for UE support and then stood sink side while washing his hands with SBA. Functional mobility then completed back to the EOB where he transferred sit to supine with SBA. Pt was left with call light in hand, tray table in place, and phone in reach. Continue with rec D/C plan to SNF. WAQAS Merchant/Chrissie
--- NOTE | 2019-04-22 09:00 | NUR ---
case management visits with patient, he has been referred to [facility] for short term assisted for rehab when medically stable for discharge, case management will follow
--- NOTE | 2019-04-22 09:11 | NUR ---
PHYSICAL THERAPY Patient presented to therapy in supine with head of bed elevated and wound vac attached to R foot. Patient's bed alarm is not activated. Patient was identified by name and on wristband. Patient disconected his own wound vac and donned his surgical shoe on R foot. Patient gives informed consent for treatment. Patient transferred supine to sitting at EOB with SBA. Patient performed sit to stand from EOB with CGA. Patient does not use Wh Walker. Patient ambulated 60' x 2 with CLose Supervision to CGA X 1 and no LOB, pain or other difficulty with ambulation. Patient was left sitting on EOB with call light within reach and tray table near patient. Patient was 1:1 with this CLINICAL EDUCATION ASSISTANT for 15 minutes total. MARIA LUISA JUÁREZ CLINICAL EDUCATION ASSISTANT
--- NOTE | 2019-04-22 10:35 | NUR ---
Contacted [facility] and asked them to start precert, patient is ready for discharge.
[2019-04-22 12:00] VITALS: BP 135/73
[2019-04-22 16:00] VITALS: BP 137/70
[2019-04-22] MEDS ORDERED: CEFTRIAXONE2 G1 IV (16:20)
[2019-04-22 20:00] VITALS: BP 129/69
--- NOTE | 2019-04-22 20:00 | NUR ---
AWAKE & ALERT SITTING UP AT BEDSIDE. PICC LINE INTACT TO RIGHT UPPER ARM & HEP LOCK INTACT TO RIGHT HAND; SITE ASYMPTOMATIC. PULSE OX 98% ON ROOM AIR. WOUND VAC INTACT TO RIGHT GREAT TOE; NO DRAINAGE NOTED. CALL LIGHT WITHIN REACH.
--- NOTE | 2019-04-22 22:00 | NUR ---
BLOOD SUGAR 254; COVERAGE PER EMAR.
[2019-04-23] VITALS: BP 149/77
--- NOTE | 2019-04-23 06:00 | NUR ---
BLOOD SUGAR 199; COVERAGE GIVEN PER EMAR.
--- NOTE | 2019-04-23 07:46 | NUR ---
Updated [place] on IV ATB change, precert started, waiting on auth.
[2019-04-23 08:00] VITALS: BP 138/82
--- NOTE | 2019-04-23 10:07 | NUR ---
OT NOTE PATIENT SEEN 1:1 OT THIS DATE. PATIENT IDENTIFIED BY NAME AND DATE OF . PATIENT COMPLETED 20 MINUTES OT THIS DATE. PATIENT IN BED WITH IV AND WOUND VAC. PATIENT DECLINED TO COMPLETE FUNCTIONAL AMBULATION DUE TO IV. COMPLETED BUE STRENGTHENING TOWEL EXERCISES WITH MOD RESISTANCY 3 EXERCISES X 15 REPS SEATED AND STANDING CGA COMPLETING TRICEP EXTENSION X 15 REPS FOR INCREASE INDEPENDENCE WITH FUNCTIONAL TRANSFERS/ADL TASKS. COMPLETED SIT TO STAND FROM BED CGA. PATIENT IN BED END OF SESSION WITH BED ALARM IN PLACE. CONTINUE TOWARDS PLAN OF CARE. CORAL ALAN/Chrissie
--- NOTE | 2019-04-23 10:09 | NUR ---
PHYSICAL THERAPY PT SUPINE IN BED UPON ARRIVAL. PT IDENTIFIED BT NAME AND . PT AGREED TO ALL PHYSICAL THERAPY TREATMENT THIS VISIT. PERFORMED BED MOIBILITY WITH SBA. PT PERFORMED THE FOLLOWING SEATED EXERCISES 20X EACH TO INCREASE LE STRENGTH. LONG ARC QUAD, MARCH, TOE RAISE. PT PERFORMES STS TO AND FROM EOB WITH CGA. VC'S FOR WEIGHT BEARING STATUS OF "LIMITED WEIGHT BEARING WITH SURGICAL SHOE" PER OPERATIVE REPORT GIVEN. PT SITTING EOB BED WITH PRESENT AND BED ALARM ON AT END OF SESSION. PT SEEN 1:1 FOR 14MINS. ROSY SIGALA PTA
[2019-04-23 12:00] VITALS: BP 142/81
--- NOTE | 2019-04-23 13:15 | NUR ---
PHYSICAL THERAPY CO-SIGN I approve of the Physical Therapy notes written above. ALEXANDER VASQUEZ PT,DPT
[2019-04-23 16:00] VITALS: BP 134/68
--- NOTE | 2019-04-23 16:18 | NUR ---
RECEIVED CALL FROM [facility] THAT THEY RECEIVED AUTH AND PT CAN GO T[facility]. HOSPITALIST NURSE DIRECTOR FRED INFORMED.
--- NOTE | 2019-04-23 19:06 | NUR ---
Discharge instructions reviewed with patient/family. Patient receptive and verbalizes understanding. Follow-up care arranged WITH [facility] [place]. PATIENT WAS TRANSPORTED BY HIS .. Written instructions given to patient/family. SORAYA AGOSTO
--- NOTE | 2019-04-26 12:27 | NUR ---
OCCUPATIONAL THERAPY CO-SIGN I approve of the Occupational Therapy notes written above. NAVNEET JAFFE OTR/Chrissie
[2019-06-09] MEDS ORDERED: KEFLEX 500 MG E2 CAP PO (15:58)
== END 2019-04-23 19:06 | disposition other institution (70) | DRG 853 ==
LOC: ED 14:38 → EDHOLD 16:21 → 4E 16:21
PROVIDERS: Hospitalist; Nurse Practitioner Family; Podiatrist; Student in an Organized Health Care Education/Training Program; ADMIT Internal Medicine
PROC: 0QBQ3ZX Excision of Right Toe Phalanx, Percutaneous Approach, Diagnostic (ICD-10-PCS; principal; 2019-04-20)
PROC: 0QBQ0ZZ Excision of Right Toe Phalanx, Open Approach (ICD-10-PCS; principal; 2019-04-20)
PROC: 02HV33Z Insertion of Infusion Device into Superior Vena Cava, Percutaneous Approach (ICD-10-PCS; principal; 2019-04-20)
DX: A41.9 Sepsis, unspecified organism (principal); E43 Unspecified severe protein-calorie malnutrition; N17.0 Acute kidney failure with tubular necrosis; E87.2 Acidosis; E87.1 Hypo-osmolality and hyponatremia; M86.8X7 Other osteomyelitis, ankle and foot; M00.9 Pyogenic arthritis, unspecified; R65.20 Severe sepsis without septic shock; E11.621 Type 2 diabetes mellitus with foot ulcer; B96.20 Unspecified Escherichia coli [E. coli] as the cause of diseases classified elsewhere; L97.519 Non-pressure chronic ulcer of other part of right foot with unspecified severity; L03.031 Cellulitis of right toe; I10 Essential (primary) hypertension; E11.42 Type 2 diabetes mellitus with diabetic polyneuropathy; E78.5 Hyperlipidemia, unspecified; E11.69 Type 2 diabetes mellitus with other specified complication; Z88.5 Allergy status to narcotic agent; Z79.4 Long term (current) use of insulin; Z79.899 Other long term (current) drug therapy; Z79.82 Long term (current) use of aspirin; Z90.49 Acquired absence of other specified parts of digestive tract; Z82.49 Family history of ischemic heart disease and other diseases of the circulatory system; Z82.5 Family history of asthma and other chronic lower respiratory diseases; Z80.3 Family history of malignant neoplasm of breast; Z68.34 Body mass index [BMI] 34.0-34.9, adult

== ENCOUNTER → 2019-06-16 | Day surgery (SDC) | payer OTHER ==
[~2019-06-16] VITALS: Ht 180.3 cm; Wt 108.9 kg
[~2019-06-16] MED LIST changes: +CEFTRIAXONE2 G1 IV; +KEFLEX 500 MG E2 CAP PO
--- NOTE | ~2019-06-16 | O ---
[place], [place] OPERATIVE NOTE NAME: LIZETT MOSQUEDA SR, I UNIT #: [id number] ROOM: DOCTOR: SONI SALVADOR MD BIRTHDATE: [birth year] DOS: 06/16/2019 PREOPERATIVE DIAGNOSIS: Cataract, left eye. POSTOPERATIVE DIAGNOSIS: Cataract, left eye. OPERATION: Extracapsular cataract extraction by phacoemulsification with posterior chamber intraocular lens implantation, left eye. ANESTHESIA: Monitored standby. OPERATIVE FINDINGS AND PROCEDURE: 2% Xylocaine topical anesthetic gel was applied to the eye in the preop area. The patient was taken to the operating room and prepped and draped in the standard fashion for sterile intraocular surgery. A time out procedure was performed verifying correct patient, correct site and corrects lens with Lali Salvador M.D. The operating microscope was swung into position and the lid speculum was inserted. Using a Deanna paracentesis blade, a paracentesis was made through clear cornea. Viscoelastic was used to fill the anterior chamber. Using a metal keratome a 2.4 mm self-sealing clear corneal cataract incision was made temporally at the limbus. Using a pre-bent 25 gauge cystotome needle, a standard continuous curvilinear capsulorrhexis was performed. The anterior capsule was removed with forceps. The lens nucleus was hydrodissected and phacoemulsified in the posterior chamber. Cortical material was removed with the irrigation aspiration hand piece and the posterior capsule was then polished with a curet under irrigation. The posterior chamber and capsular bag were filled with viscoelastic. A posterior chamber intraocular lens manufactured by: [employer], Model #[id number], and 22.5 diopters in strength were then inserted into the posterior chamber and within the capsular bag using the lens cartridge and injector system. Viscoelastic was removed using the irrigation aspiration handpiece. The anterior chamber was filled with balanced salt solution through the paracentesis. Both the paracentesis site and cataract incisions were hydrated with BSS and verified to be water-tight and self-sealing. Cefuroxime 1 mg/0.1 mL was injected into the anterior chamber through the paracentesis site. The incision checked to be water-tight using a Weck-Adelaida sponge. The integrity of the cataract wound and ocular tension were checked. Lid speculum and drapes were removed. The patient was transferred from the operating room to the recovery room in satisfactory condition. [place], [place] OPERATIVE NOTE NAME: LIZETT MOSQUEDA SR, I UNIT #: [id number] ROOM: DOCTOR: SONI SALVADOR MD BIRTHDATE: [birth year] SONI SALVADOR MD CM:OPRECORD:OPERATIVE NOTE 7 SONI SALVADOR MD 06/16/1944 interface
[2019-06-16 07:20] VITALS: BP 117/64
[2019-06-16 08:39] VITALS: BP 122/80
[2019-06-16 08:53] VITALS: BP 134/77
[2019-06-16 09:09] VITALS: BP 116/77
== END | disposition home or self-care (01) ==
LOC: SDC 06-10 08:45
DX: H25.812 Combined forms of age-related cataract, left eye (principal); I10 Essential (primary) hypertension; E78.5 Hyperlipidemia, unspecified; E11.36 Type 2 diabetes mellitus with diabetic cataract; E66.9 Obesity, unspecified; Z68.33 Body mass index [BMI] 33.0-33.9, adult; Z98.890 Other specified postprocedural states; Z88.8 Allergy status to other drugs, medicaments and biological substances; Z82.49 Family history of ischemic heart disease and other diseases of the circulatory system

== ENCOUNTER 2021-06-25 06:27 | Emergency (ER) | payer MEDICARE ==
[~2021-06-25] VITALS: Ht 180.3 cm; Wt 116.6 kg
[2021-06-25 07:05] LABS: HEMATOCRIT 47.1 % (42.0-52.0); MEAN CELL VOLUME 80.7 fl (80.0-94.0); MEAN CORPUSCULAR HGB CONC 32.3 g/dl (33.0-37.0); MEAN PLATELET VOLUME 9.7 fl (9.6-12.3); PLATELET COUNT AUTOMATED 223 10*3/uL (130-400); RED BLOOD COUNT 5.84 10*6/uL (4.50-5.90); RED CELL DISTRI WIDTH 15.4 % (0-14.5); WHITE BLOOD COUNT 26.7 10*3/uL (4.8-10.8)
[2021-06-25 07:22] LABS: ALKALINE PHOSPHATASE 49 U/L (45-117); BUN 41 mg/dl (7-24); CHLORIDE 104 mmol/L (98-107); CPK 138 U/L (39-308); CREATININE 1.93 mg/dL (0.70-1.30); POTASSIUM 4.3 mmol/L (3.5-5.1); SGOT/AST 22 IU/L (3-35); SGPT/ALT 22 U/L (12-78); SODIUM 135 mmol/L (136-145); TOTAL PROTEIN 7.4 gm/dL (6.4-8.2)
[2021-06-25 07:29] LABS: TROPONIN I < 0.015 ng/ml (<0.045)
[2021-06-25 07:42] LABS: TOTAL CELLS COUNTED 100 #CELLS
[2021-06-25 07:43] LABS: PLATELET SUFFICIENCY NORMAL (NORMAL); POLYCHROMASIA SLIGHT; SCHISTOCYTES FEW
[2021-06-25 09:12] LABS: BILIRUBIN Negative (Negative); BLOOD 1+ (Negative); CLARITY Clear (Clear); COLOR Yellow (Yellow); GLUCOSE 3+ (Negative); KETONE Negative (Negative); LEUKO ESTERASE Negative (Negative); NITRITE Negative (Negative); SPECIFIC GRAVITY 1.025 (1.001-1.030); UROBILINOGEN 0.2 E.U./dl (0.0-1.0)
[2021-06-25 09:26] LABS: BACTERIA TRACE
== END 2021-06-25 11:01 | disposition short-term general hospital (02) ==
LOC: ED 06:27
PROVIDERS: Emergency Medicine; Student in an Organized Health Care Education/Training Program
DX: S32.039A Unspecified fracture of third lumbar vertebra, initial encounter for closed fracture (principal); R58 Hemorrhage, not elsewhere classified; Z88.6 Allergy status to analgesic agent; Z79.899 Other long term (current) drug therapy; W18.39XA Other fall on same level, initial encounter; Y93.89 Activity, other specified; Y92.89 Other specified places as the place of occurrence of the external cause; Y99.8 Other external cause status